=== PATIENT | male | born 1945 | race Caucasian/White ===

== ENCOUNTER 2016-06-03 17:22 | Emergency (ER) | payer OTHER, MEDICARE ==
[~2016-06-03] VITALS: Ht 177.8 cm; Wt 99.0 kg
[~2016-06-03 17:22] MED LIST: ACET-749 PO; BLOOD PRESSURE MEDS; CEPH500C PO; MULT-513 PO; VITAMINS
[2016-06-03 17:35] VITALS: TEMP 36.4; Ht 177.8 cm; Wt 99.0 kg
[2016-06-03] MEDS ORDERED: TRAM-10 PO (17:39)
[2016-06-03] MEDS ORDERED: [UNRECOGNIZED DRUG - OTHER] PO (17:39)
[2016-06-03] MEDS ORDERED: MoRPHine SULFATE 10 MG/ML CARP/VIAL IV STA (17:41)
[2016-06-03] MEDS ORDERED: SODIUM CHLORIDE 0.9% 1000ML 1,000 ML IV STA (17:41)
[2016-06-03 17:57] LABS: BASO % 0.2 %; BASO ABS # 0.02 K/uL (0-0.2); COMPLETE YES; EOS % 0.2 %; HEMATOCRIT 38.1 % (42-52); IG% 0.1 %; LYMPH % 18.9 %; LYMPH ABS # 1.62 K/uL (1.2-3.4); MEAN CELL VOLUME 81.8 fL (80-100); MEAN CORPUSCULAR HEMOGLOBIN 27.9 pg (25-34); MEAN CORPUSCULAR HGB CONC 34.1 g/dl (32-36); MEAN PLATELET VOLUME 9.7 fL (7.4-10.4); MONO % 6.6 %; PLATELET COUNT 274 K/uL (130-400); RED BLOOD COUNT 4.66 M/uL (4.7-6.1); WHITE BLOOD COUNT 8.58 K/uL (4.8-10.8)
[2016-06-03 18:01] LABS: BUN/CREATININE RATIO 20.7 (10-20); CREATININE 0.97 mg/dl (0.60-1.40); POTASSIUM 3.8 mmol/L (3.5-5.1)
[2016-06-03 18:04] LABS: ALB/GLOB RATIO 1.2 (0.9-2)
[2016-06-03 18:18] VITALS: BP 162/101
--- NOTE | 2016-06-03 18:24 | DIAGNOSTIC IMAGING REPORT ---
ABDOMEN AND PELVIS CT WITHOUT CONTRAST CT DOSE: 1455.77 mGy.cm HISTORY: right flank pain into groin, nausea TECHNIQUE: Multiaxial CT images of the abdomen and pelvis were performed without the use of intravenous and oral contrast according to the standard department stone protocol. COMPARISON STUDY: None. FINDINGS: There are no renal stones. Mild right perinephric and periureteral fat stranding/edema. There is a 2 mm stone at the right ureterovesical junction. This results in mild right hydroureteronephrosis. This is best seen on image 139. The bladder is unremarkable. The lung bases are essentially clear. Small hiatus hernia. Colonic diverticulosis. Suboptimal evaluation for bowel pathology due to the lack of intravenous and oral contrast. However, there is no definite bowel wall thickening or obstruction. Normal appendix. No retroperitoneal lymphadenopathy. The unenhanced liver, spleen, GI glands, pancreas, and gallbladder are unremarkable. There is a 5 mm exophytic hyperdense lesion within the left kidney. This is too small to characterize but may represent a hyperdense cyst. IMPRESSION: 1. A 2 mm obstructing stone within the right ureterovesical junction resulting in mild right hydronephrosis. 2. No definite bowel wall thickening or obstruction. 3. Colonic diverticulosis. 4. Small hiatus hernia. Electronically signed by: Arvin Mccabe M.D. 06/03/2016 6:22 PM Dictated Date/Time: 06/03/2016 6:16 PM
[2016-06-03] MEDS ORDERED: TAMSULOSIN HCL 0.4 MG CAP PO ONE (18:45)
[2016-06-03] MEDS ORDERED: MoRPHine SULFATE 4 MG/ML 1 ML CARP\\VIAL IV STA (18:45)
[2016-06-03] MEDS ORDERED: OXYCODONE IR HOME PACK PO ONE (19:00)
[2016-06-03] MEDS ORDERED: ONDANSETRON HOME PACK 4MG OD TAB PO ONE (19:00)
[2016-06-03 19:05] LABS: URINE APPEARANCE CLEAR (CLEAR); URINE BILIRUBIN NEG (NEG); URINE COLOR DK YELLOW; URINE NITRITE NEG (NEG); URINE SPECIFIC GRAVITY 1.021 (1.000-1.030); UROBILINOGEN NEG (NEG); ZZUR CULT IF INDIC CLEAN CATCH NO
[2016-06-03 19:07] LABS: MANUAL MICROSCOPIC REQUIRED? NO; REVIEW REQ? NO
[2016-06-03] MEDS ORDERED: OXYC1TAB3 PO (19:16)
[2016-06-03] MEDS ORDERED: TAMS0.4C38 PO (19:16)
[2016-06-03] MEDS ORDERED: ONDA4TAB10 SL (19:16)
--- NOTE | 2016-06-03 19:19 | EMERGENCY ROOM VISIT NOTE ---
History First contact with patient: 17:33 Chief Complaint: FLANK PAIN Stated Complaint: FLANK PAIN History of Present Illness The patient is a 70 year old male who presents to the Emergency Room via ALS with complaints of right flank pain with radiation into the groin that began 2 hours prior to arrival. The patient reports that he had a sudden onset of pain in the right back with radiation into the abdomen and groin. He reports he is having difficulty urinating and nausea associated with these symptoms. He denies any vomiting. He rates his pain a 12/10. He states that he cannot find a comfortable position. The patient does not have a history of kidney stones. He denies any history of abdominal surgeries. He does not take any medications daily and did not take any medications for today's symptoms. He denies any fevers/chills, chest pain, shortness of breath or recent illnesses. Review of Systems A complete 10-point Review of Systems was discussed with the patient, with pertinent positives and negatives listed in the History of Present Illness. All remaining Review of Systems questions can be considered negative unless otherwise specified. Social History Smoking Status: Never Smoker Current/Historical Medications Scheduled Multiple Vitamins W/ Minerals (Multivitamin), 1 OZ PO DAILY Ondasetron Odt (Zofran Odt), 4 MG SL Q6H Tamsulosin Hcl (Flomax), 0.4 MG PO DAILY Scheduled PRN Oxycodone Ir (Roxicodone Ir), 1-2 TAB PO Q4H PRN for Pain Tramadol (Ultram), 50 MG PO Q8H PRN for Pain Allergies Coded Allergies: Aspirin (Unverified Allergy, Unknown, UNSURE, 06/03/16) Citric Acid (Unverified Allergy, Unknown, UNKNOWN, 06/03/16) Ibuprofen (Unverified Allergy, Unknown, UNSURE, 06/03/16) Physical Exam Vital Signs Date Time Temp Pulse Resp B/P Pulse Ox O2 Delivery O2 Flow Rate FiO2 06/03/16 19:37 87 20 99 06/03/16 18:18 91 18 162/101 99 Room Air 06/03/16 17:35 36.4 86 21 176/104 98 Room Air Pain Rating (0-10): 5.0 Physical Exam VITALS: Vitals are noted on the nurse's note and reviewed by myself. Vital signs stable. GENERAL: This is a 70-year-old male, in no acute distress, nondiaphoretic, well- developed well-nourished. SKIN: Capillary reflex less than 2 seconds. HEENT: Normocephalic. PERRLA. EOMI. Nares patent. Mucous membranes moist. Neck is supple without nuchal rigidity. HEART: Regular rate and rhythm without murmurs gallops or rubs. LUNGS: Clear to auscultation bilaterally without wheezes, rales or rhonchi. No retractions or accessory muscle use. ABDOMEN: Positive bowel sounds x 4. Abdomen is soft with moderate tenderness over the right lower quadrant. Moderate right CVA tenderness. NEURO: Patient was alert and oriented to person place and time. Medical Decision & Procedures ER Provider Diagnostic Interpretation: ABDOMEN AND PELVIS CT WITHOUT CONTRAST CT DOSE: 1455.77 mGy.cm HISTORY: right flank pain into groin, nausea TECHNIQUE: Multiaxial CT images of the abdomen and pelvis were performed without the use of intravenous and oral contrast according to the standard department stone protocol. COMPARISON STUDY: None. FINDINGS: There are no renal stones. Mild right perinephric and periureteral fat stranding/edema. There is a 2 mm stone at the right ureterovesical junction. This results in mild right hydroureteronephrosis. This is best seen on image 139. The bladder is unremarkable. The lung bases are essentially clear. Small hiatus hernia. Colonic diverticulosis. Suboptimal evaluation for bowel pathology due to the lack of intravenous and oral contrast. However, there is no definite bowel wall thickening or obstruction. Normal appendix. No retroperitoneal lymphadenopathy. The unenhanced liver, spleen, GI glands, pancreas, and gallbladder are unremarkable. There is a 5 mm exophytic hyperdense lesion within the left kidney. This is too small to characterize but may represent a hyperdense cyst. IMPRESSION: 1. A 2 mm obstructing stone within the right ureterovesical junction resulting in mild right hydronephrosis. 2. No definite bowel wall thickening or obstruction. 3. Colonic diverticulosis. 4. Small hiatus hernia. Laboratory Results 06/03/16 17:30 Red Blood Count 4.66, Mean Corpuscular Volume 81.8, Mean Corpuscular Hemoglobin 27.9, Mean Corpuscular Hemoglobin Concent 34.1, Mean Platelet Volume 9.7, Neutrophils (%) (Auto) 74.0, Lymphocytes (%) (Auto) 18.9, Monocytes (%) (Auto) 6.6, Eosinophils (%) (Auto) 0.2, Basophils (%) (Auto) 0.2, Neutrophils # (Auto) 6.34, Lymphocytes # (Auto) 1.62, Monocytes # (Auto) 0.57, Eosinophils # (Auto) 0.02, Basophils # (Auto) 0.02 06/03/16 17:30 Test 06/03/16 17:30 06/03/16 18:52 White Blood Count 8.58 K/uL (4.8-10.8) Red Blood Count 4.66 M/uL (4.7-6.1) Hemoglobin 13.0 g/dL (14.0-18.0) Hematocrit 38.1 % (42-52) Mean Corpuscular Volume 81.8 fL (80-100) Mean Corpuscular Hemoglobin 27.9 pg (25-34) Mean Corpuscular Hemoglobin Concent 34.1 g/dl (32-36) Platelet Count 274 K/uL (130-400) Mean Platelet Volume 9.7 fL (7.4-10.4) Neutrophils (%) (Auto) 74.0 % Lymphocytes (%) (Auto) 18.9 % Monocytes (%) (Auto) 6.6 % Eosinophils (%) (Auto) 0.2 % Basophils (%) (Auto) 0.2 % Neutrophils # (Auto) 6.34 K/uL (1.4-6.5) Lymphocytes # (Auto) 1.62 K/uL (1.2-3.4) Monocytes # (Auto) 0.57 K/uL (0.11-0.59) Eosinophils # (Auto) 0.02 K/uL (0-0.5) Basophils # (Auto) 0.02 K/uL (0-0.2) RDW Standard Deviation 42.6 fL (36.4-46.3) RDW Coefficient of Variation 14.3 % (11.5-14.5) Immature Granulocyte % (Auto) 0.1 % Immature Granulocyte # (Auto) 0.01 K/uL (0.00-0.02) Anion Gap 11.0 mmol/L (3-11) Est Creatinine Clear Calc Drug Dose 84.8 ml/min Estimated GFR () 91.9 Estimated GFR (Non- 79.3 BUN/Creatinine Ratio 20.7 (10-20) Calcium Level 9.0 mg/dl (8.5-10.1) Total Bilirubin 0.4 mg/dl (0.2-1) Aspartate Amino Transf (AST/SGOT) 26 U/L (15-37) Alanine Aminotransferase (ALT/SGPT) 33 U/L (12-78) Alkaline Phosphatase 94 U/L (45-117) Total Protein 7.5 gm/dl (6.4-8.2) Albumin 4.1 gm/dl (3.4-5.0) Globulin 3.4 gm/dl (2.5-4.0) Albumin/Globulin Ratio 1.2 (0.9-2) Lipase 97 U/L (73-393) Urine Color DK YELLOW Urine Appearance CLEAR (CLEAR) Urine pH 5.0 (4.5-7.5) Urine Specific Hurricane 1.021 (1.000-1.030) Urine Protein NEG (NEG) Urine Glucose (UA) NEG (NEG) Urine Ketones 2+ (NEG) Urine Occult Blood NEG (NEG) Urine Nitrite NEG (NEG) Urine Bilirubin NEG (NEG) Urine Urobilinogen NEG (NEG) Urine Leukocyte Esterase NEG (NEG) Medications Administered Medications (Trade) Dose Ordered Sig/Yenifer Route Start Time Stop Time Status Last Admin Dose Admin Sodium Chloride (Nss 1000ml) 1,000 ml @ 999 mls/hr Q1H1M STAT IV 06/03/16 17:41 06/03/16 18:41 DC 06/03/16 17:49 999 MLS/HR Morphine Sulfate (MoRPHine SULFATE INJ) 6 mg NOW STAT IV 06/03/16 17:41 06/03/16 17:43 DC 06/03/16 17:49 6 MG Morphine Sulfate (MoRPHine SULFATE INJ) 4 mg NOW STAT IV 06/03/16 18:45 06/03/16 18:46 DC 06/03/16 18:58 4 MG Tamsulosin HCl (Flomax Cap) 0.4 mg NOW ONCE PO 06/03/16 18:45 06/03/16 18:46 DC 06/03/16 18:58 0.4 MG Oxycodone HCl (Roxicodone Immediate Rel 5MG Home Pack) 1 homepack UD ONCE PO 06/03/16 19:00 06/03/16 19:01 DC 06/03/16 18:59 1 HOMEPACK Ondansetron HCl (ZOFRAN ODT 4MG Home Pack) 1 homepack UD ONCE PO 06/03/16 19:00 06/03/16 19:01 DC 06/03/16 18:59 1 HOMEPACK Medical Decision Differential diagnosis includes renal calculus, pyelonephritis, musculoskeletal pain, abdominal aortic aneurysm, bowel obstruction, colitis, among others. The patient was evaluated as above. Labs were drawn and IV access was obtained. Imaging studies were performed and read by radiology as above. The patient had received 4 mg Zofran IV en route. The patient was initially medicated with 6 mg morphine IV and 1 L normal saline bolus. He did require an additional 4 mg morphine. He was given a dose of Flomax. He was given home packs for OxyIR and Zofran. The patient was reassessed multiple times during their stay in the emergency department and remained in stable condition. The patient is a 70-year-old male who presents today complaining of right flank pain. Labs revealed no leukocytosis, anemia or concerning electrolyte abnormality. Urinalysis was not suggestive of infection. CT of the abdomen and pelvis did show a right ureteral stone at the UVJ. The stone is 2 mm and I do feel it will pass without intervention. Findings were discussed with the patient and options of care were discussed including admission for pain control versus discharge home. The patient prefers to be discharged home. He will be given prescriptions for Flomax, OxyIR and Zofran. He will follow-up with his primary care provider or urology as needed. He was given a urine strainer. He had significant relief of his pain with IV morphine and Zofran. Based on the patient's presentation, lab results, and imaging studies, I feel the patient is stable for outpatient treatment. The patient was independently evaluated by Dr. Gonzalez, ED attending physician, who agreed with my assessment and treatment plan. Discharge instructions were reviewed with the patient. The patient verbalized understanding of my assessment and treatment plan and was discharged home in good condition. Impression Primary Impression: Ureteral calculus Departure Information Dispostion Home / Self-Care Condition GOOD Prescriptions Tamsulosin Hcl (FLOMAX) 0.4 Mg Cap 0.4 MG PO DAILY for 10 Days, #10 CAP Prov: Chaya Mcguire ., CLAUDE 06/03/16 Ondasetron Odt (ZOFRAN ODT) 4 Mg Tab 4 MG SL Q6H for Nausea, #15 TAB Prov: Chaya Mcguire PA-C 06/03/16 Oxycodone Ir (Roxicodone Ir) 5 Mg Tab 1-2 TAB PO Q4H Y for Pain, #24 TAB For Initial Treatment Prov: Chaya Mcguire PA-C 06/03/16 Referrals William Abreu M.D. (PCP) Km Bee M.D. Patient Instructions A Signature Page, My [facility] Additional Instructions You have been treated in the Emergency Department today for a Kidney Stone ( Nephrolithiasis). You have received pain medicine in the emergency department which impairs your ability to operate a vehicle. It is illegal for you to drive after receiving these medicines. You have been prescribed Oxy IR to be used for pain control. This is a narcotic medication. You cannot drive or consume alcohol while on this medicine. This medicine should only be used for pain that cannot be controlled with over-the- counter pain medicines. You have been prescribed Zofran to be used for any nausea or vomiting. Take as prescribed. You have been prescribed Flomax 0.4 mg to be taken ONCE daily. This medicine has been prescribed as it can help relax the smooth muscles of the urinary tract increasing transit time of the kidney stone. For pain control, you can use the following apig-yeg-spnjjwj medicines (if >12 yo): - Regular strength (325mg/tab) Tylenol (acetaminophen) 2 tabs every 4-6 hours as needed. Do not exceed 12 tablets in a 24 hour period. Avoid taking more than 4 grams (4000 mg) of Tylenol per day. This includes any other sources of acetaminophen you may take on a regular basis. - Regular strength (200 mg/tab) Advil (ibuprofen) 1-2 tabs every 4-6 hours as needed. Do not exceed a dose of 3200 mg per day. You have been provided a strainer and specimen collection cup. You should strain your urine to collect any passed stones. Your stones can be placed into the specimen cup and taken to your Urologist for further evaluation. Follow-up with a urologist if you have not passed the stone in 2-3 days. Return to the Emergency Department if your symptoms persist despite the treatment plan outlined above or if you develop the following symptoms: intractable pain, fever, chills, or large amounts of blood in your urine.
[2016-06-03 19:37] VITALS: PULSE 87; O2SAT 99
--- NOTE | 2016-06-03 22:34 | EMERGENCY ROOM VISIT NOTE ---
ED Visit Note First contact with patient: 17:33 I have personally seen and evaluated the patient with the PA. I agree with the diagnosis and management decisions and have been personally involved in the case. Patient was feeling improved on my evaluation. He seems comfortable with the plan for discharge. His CT scan results were reviewed as well as the plan for conservative management of the 2 mm calculus. Please see Chaya Mcguire PA-C's notes for further details of the history, physical and visit.
== END 2016-06-03 19:47 | disposition home or self-care (01) ==
LOC: EDSEX 17:22 → EDBD 17:22 → C.EDB 17:24
DX: N20.1 Calculus of ureter (principal); Z88.6 Allergy status to analgesic agent; Z91.018 Allergy to other foods

== ENCOUNTER 2020-04-06 12:36 | Inpatient (IN) ==
--- OUTSIDE RECORDS SUMMARY | 2020-04-06 12:39 | External Medical Summary | Continuity of Care Document ---
:1945 Author Name Shruthi Menjivar Address Unavailable Unavailable , Care Team Providers Name Role Phone Unavailable Unavailable Unavailable Problems Active medical history not documented Allergies and Adverse Reactions Allergy history not documented Medications Medications not documented Procedures Procedures not documented Immunizations Immunizations not documented Plan of Treatment Planned Observations Planned Goals not documented Results No Known Results Results not documented
[2020-04-06] MEDS ORDERED: cefTRIAXone SODIUM 2,000 MG/70 ML BAG IV STA (12:57)
[2020-04-06] MEDS ORDERED: ACETAMINOPHEN 1,000 MG/100 ML VIAL IV STA (12:57)
[2020-04-06] MEDS ORDERED: DOXYCYCLINE HYCLATE 100 MG CAP PO STA (12:57)
[2020-04-06 12:59] LABS: Basophils # (auto) 0.01 K/uL (0-0.2); Basophils % (auto) 0.1 %; Hematocrit (blood only) 43.3 % (42-52); Hemoglobin 14.9 g/dL (14.0-18.0); Immature Granulocytes # (auto) 0.03 K/uL (0.00-0.02); Immature Granulocytes % (auto) 0.3 %; Lymphocytes # (auto) 0.45 K/uL (1.2-3.4); Lymphocytes % (auto) 4.5 %; Mean Corpuscular Hemoglobin 31.1 pg (25-34); Mean Corpuscular Hgb Conc 34.4 g/dL (32-36); Mean Corpuscular Volume 90.4 fL (80-100); Monocytes # (auto) 0.76 K/uL (0.11-0.59); Monocytes % (auto) 7.5 %; Neutrophils # (auto) 8.83 K/uL (1.4-6.5); Neutrophils % (auto) 87.6 %; Platelet Count 171 K/uL (130-400); RDW Coefficient of Variation 13.3 % (11.5-14.5); RDW Standard Deviation 43.6 fL (36.4-46.3); Red Blood Count 4.79 M/uL (4.7-6.1); White Blood Count 10.08 K/uL (4.8-10.8)
[2020-04-06 13:09] LABS: Alanine Aminotransferase 34 U/L (12-78); Aspartate Aminotransferase 33 U/L (15-37); BUN Creatinine Ratio 34.3 (10-20); Blood Urea Nitrogen 28 mg/dl (7-18); Calcium 9.6 mg/dl (8.5-10.1); Carbon Dioxide 24 mmol/L (21-32); Chloride 100 mmol/L (98-107); Creatinine Clr Calc Pharmacy 92.7 ml/min; Est GFR (African American) 101.7; Est GFR (Non-African American) 87.7; Glucose 137 mg/dl (70-99); Lipase 202 U/L (73-393); Potassium 3.4 mmol/L (3.5-5.1); Sodium 133 mmol/L (136-145)
[2020-04-06 13:11] LABS: Partial Thromboplastin Time 29.1 Seconds (21.0-31.0)
[2020-04-06 13:16] LABS: Albumin Globulin Ratio 0.6 (0.9-2); Alkaline Phosphatase 114 U/L (45-117); Bilirubin,Total 0.7 mg/dl (0.2-1); Creatine Kinase 122 U/L (39-308); Creatine Kinase MB < 1.0 ng/ml (0.5-3.6); Globulin 4.9 gm/dl (2.5-4.0); Total Protein 7.9 gm/dl (6.4-8.2); Troponin I < 0.015 ng/ml (0-0.045)
[2020-04-06] MEDS ORDERED: POTASSIUM CHLORIDE CRTAB 20 MEQ TABCR PO STA (13:30)
--- NOTE | 2020-04-06 13:49 | XRay Report ---
XR chest 1V portable CLINICAL HISTORY: Atypical chest pain COMPARISON STUDY: No previous studies for comparison. FINDINGS: The heart is the upper limits of normal in size. There is mild central vascular prominence without evidence of overt failure. There is no lobar consolidation. There are no pleural effusions. T here is mild basilar atelectasis.[ IMPRESSION: 1. AP portable study 2. No evidence of focal pulmonary consolidation 3. Mild basilar atelectasis ACT 112: Negative or not required by law. Electronically signed by: Atif Francis M.D. 04/06/2020 1:47 PM
[2020-04-06 13:55] LABS: D Dimer 5960 ug/L FEU (0-500)
[2020-04-06 14:11] LABS: Lyme Ab IgG w/WB Rflx Negative (Negative); Lyme Ab IgM w/WB Rflx Negative (Negative)
[2020-04-06] MEDS: MAGNESIUM SULFATE / D5W 1 GM/100 ML BAG IV SCH ×4 (14:16→17:23)
--- NOTE | 2020-04-06 15:24 | Ultrasound Report ---
US abdomen limited HISTORY: 74 years-old Male Pt c/o RUQ abd pain . Right upper quadrant abdominal pain COMPARISON: CT abdomen and pelvis 06/03/2016 TECHNIQUE: Multiple real-time sonographic images of the abdominal right upper quadrant were obtained assessing grayscale appearance and color flow FINDINGS: The pancreas is mostly obscured by bowel gas. Increased echogenicity of the liver suggests probable h epatic steatosis. Ill-defined area decreased echogenicity of the liver noted adjacent to the loida he patis measuring 2.0 cm suggests fatty sparing. No intrahepatic biliary ductal dilation. The gallbladd er is moderately distended and demonstrates edematous wall thickening measuring up to 6 mm. Trace per icholecystic fluid. Cholelithiasis with layering gallbladder sludge. Sonographic Browne sign was unab le to be assessed secondary to patient recently receiving pain medication. The dry plasterer does repor t that the patient experienced subjective right upper quadrant tenderness. Common bile duct is mildly dilated measuring 1.1 cm. Unremarkable right kidney without hydronephrosis. IMPRESSION: 1. Cholelithiasis with edematous wall thickening and pericholecystic fluid is suspicious for acute ch olecystitis. 2. Mild dilation of the common bile duct without obstructing biliary stone or lesion identified. 3. Increased echogenicity of the liver suggests hepatic steatosis. ACT 112: Negative or not required by law. The above report was generated using voice recognition software. It may contain grammatical, syntax o r spelling errors. Electronically signed by: Frank Palacios M.D. 04/06/2020 3:22 PM
[2020-04-06] MEDS ORDERED: OPTIRAY 320 125ml IV ONE (15:41)
--- NOTE | 2020-04-06 15:57 | CT Scan Report ---
CT SCAN OF THE ABDOMEN AND PELVIS WITH IV CONTRAST CLINICAL HISTORY: Right upper quadrant abdominal pain. COMPARISON STUDY: Abdominal CT dated 06/03/2016. TECHNIQUE: Following the IV administration of 120 cc of Optiray 320, CT scan of the abdomen and pelv is is performed from the lung bases to the proximal femora. Images are reviewed in the axial, sagitta l, and coronal planes. IV contrast was administered without complication. A dose lowering technique w as utilized adhering to the principles of ALARA. CT DOSE: 1536.20 mGy.cm FINDINGS: Lung bases: The heart is normal in size and without pericardial effusion. The coronary arteries are d ensely calcified. There is a trace right pleural effusion and bibasilar atelectasis. No airspace cons olidation is seen typical for pneumonia. There is a small hiatal hernia. Circumferential wall thicken ing is noted in the distal esophagus. Liver: The contrast-enhanced liver is normal in size, contour, and attenuation. There is no intrahepa tic biliary ductal dilatation. The hepatic veins and portal veins are patent. Gallbladder: The gallbladder is distended. The gallbladder wall is edematous and hyperemic, and no si gnificant pericholecystic stranding and fluid. Findings are consistent with acute cholecystitis. Ther e is a mucosal defect along the posterior wall of the gallbladder suggesting gangrenous change/perfor ation. Inflammatory change and fluid tracking inferiorly along the right paracolic gutter. Spleen: Normal in size and attenuation. Pancreas: Moderately atrophic and grossly unremarkable. Adrenal glands: Unremarkable. Kidneys: The contrast enhanced kidneys demonstrate cortical atrophy and are without hydronephrosis. 1 .4 cm cyst is noted in the interpolar left kidney. Additional subcentimeter cortical hypodensities al so likely represent cysts but are too small for definitive characterization. Cortical scarring is see n in the left kidney. The kidneys enhance symmetrically. Abdominal vasculature: The abdominal aorta is normal in course and caliber noting mild atheroscleroti c calcification. Bowel: There is mild colonic diverticulosis without CT evidence of acute diverticulitis. No bowel obs truction is seen. The appendix is well-visualized and normal. Peritoneum: There is no intraperitoneal free air or abdominal ascites. Lymphadenopathy: None. Pelvic viscera: The bladder, prostate, and seminal vesicles are normal as visualized. Skeletal structures: The skeletal structures are osteopenic. Moderate lumbosacral spondylosis is obse rved. No lytic or blastic lesions are seen. IMPRESSION: 1. Findings are consistent with acute cholecystitis, likely with gangrenous change/perforation. 2. Trace right pleural effusion. 3. Advanced coronary artery calcification. 4. Additional findings as above. ACT 112: Negative or not required by law. Electronically signed by: Rogelio Oliveros M.D. 04/06/2020 3:55 PM
--- NOTE | 2020-04-06 15:58 | CT Scan Report ---
CT angio chest PE protocol HISTORY: 74 years-old Male with PE. Acute shortness of breath with right upper quadrant abdominal p ain TECHNIQUE: Multiple CTA images of the chest were obtained after the intravenous administration of 120 ml Optiray 320. Coronal and sagittal MIPS were obtained from the axial data set and were submitted for review. All measurements were obtained according to NASCET criteria. A dose lowering technique w as utilized adhering to the principles of ALARA. COMPARISON: CT abdomen and pelvis and abdominal ultrasound of same day FINDINGS: CTA: Moderate cardiomegaly. Moderate to extensive coronary artery calcifications. Fusiform dilation of the ascending thoracic aorta which is not well opacified and measures 4.2 x 4.2 cm. Descending thoracic tortuosity. Areas of decreased attenuation within the lobar, segmental and subsegmental branches of t he right lower lobe suggests mixing artifact. No definite evidence of thromboembolic disease. CT CHEST: Unremarkable thyroid. No adenopathy. Trace left and small right pleural effusions. Dependent subsegme ntal bibasilar opacities suggest atelectasis. There is mild bilateral bronchial wall thickening sugge stive of bronchitis or reactive airway disease. No overt pulmonary edema, suspicious pulmonary nodule or mass. Central airways are patent. There is moderate mid and distal esophageal wall thickening. Mild periesophageal stranding. Edematous gallbladder wall thickening with pericholecystic edema is partially imaged. Gynecomastia. Degenerati ve changes of the spine and shoulders. There is no acute fracture or suspicious bone lesion. IMPRESSION: 1. Cardiomegaly without evidence of pulmonary thromboembolic disease. 2. Fusiform dilation of the ascending thoracic aorta, 4.2 x 4.2 cm 3. Trace left and small right pleural effusions with dependent bibasilar opacities suggestive of atel ectasis. 4. Partially imaged edematous gallbladder wall thickening with pericholecystic fluid suggestive of ac yoselin cholecystitis. Please refer to CT abdomen and pelvis study of same day for additional findings. 5. Moderate wall thickening of the mid and distal esophagus with mild periesophageal stranding, possi adelina reflective of esophagitis. ACT 112: Negative or not required by law. The above report was generated using voice recognition software. It may contain grammatical, syntax o r spelling errors. Electronically signed by: Frank Palacios M.D. 04/06/2020 3:57 PM
[2020-04-06] MEDS ORDERED: PIPERACILLIN/TAZOBACTAM 4.5 GM/120 ML BAG IV ONE (16:18)
[2020-04-06] MEDS ORDERED: PIPERACILL/TAZOBAC CONSULT ACTIVE PRN (16:18)
--- NOTE | 2020-04-06 16:18 | History & Physical Report ---
Date of Service April 06, 2020 Assessment & Plan (1) Acute cholecystitis: Switch antibiotics to IV Zosyn Consult surgery - discussed with Dr Chandra. Given urgent need for cholecystectomy and concern for perforation - benefits of surgery outweigh any further cardiac workup for his atrial fibrillation at this time. Unlikely atrial fibrillation is ischemic given recent excellent exercise tolerance, troponin negative on admission and no chest pain or shortness of breath. He has no signs or symptoms he is in heart failure as a result of the a. fib. Acetaminophen +/- Dilaudid for pain relief, ondansetron for nausea LR @ 125 ml/hr Revised cardiac risk index 0; 3.9% 30-day risk of , RI, or cardiac arrest. (2) Atrial fibrillation with RVR: Unclear how long he has been in this rhythm but is new onset. admit to telemetry for monitoring heart rate. Rate likely appropriate given gangrenous gall bladder. No need for rate control at this stage. No acute need for anticoagulation - urgent need for cholecystectomy outweighs any anticoagulation benefit risk although this should be started non-urgently post operatively. TSH 1.13 TTE - pending (this does not need to be performed pre-operatively if urgent cholecystectomy required for reasons listed above). Consult cardiology. (3) Glaucoma: Continue his usual latanoprost and timolol (4) DVT prophylaxis: Chemical prophylaxis post-operatively; timing per surgery recommendations History of Present Illness Chief Complaint: RUQ abdominal pain Primary Care Provider: Carlee Stafford Josh Martin is a generally healthy 74 year old male who presents to the ER with 4 days of abdominal pain. Never had any gall bladder issues in the past. Abdominal pain in right upper quadrant, worse after eating (started after eating sweet and sour chicken. No change with exertion or position. Very tender to touch. Current severity 6/10 but on palpation 10/10. He reports having a fever of 100.1 degrees Fahrenheit at home. Associated reduced appetite and nausea. No vomiting, diarrhea, constipation, melena. He does report having a tick bite which he is attached when he was hunting on Sunday. However the tick was found on Sunday (2 days previously) and was removed but not engorged at this time. Tick bite found on right posterior thigh. He denies any rashes. Prior to this the patient is physically fit. Hunts regularly without any chest pain or shortness of breath. No prior history of cardiovascular disease. Able to walk a mile without any issues. No prior diagnosis of atrial fibrillation. In the ER due to the history of tick bite he received IV doxycycline and serology testing sent for anaplasmosis and ehrlichiosis. I am unclear on the reasons for ceftriaxone however 2 g IV was also prescribed. Potassium chloride 40 M EQ p.o. given for hypokalemia. Subsequent imaging concerning for gangrenous acute cholecystitis with possible perforation. He was noted to be in new onset atrial fibrillation on telemetry and EKG. Surgery has already been consulted regarding acute cholecystitis. He was referred to medicine for admission. Allergies Allergy/AdvReac Type Severity Reaction Status Date / Time aspirin Allergy Unknown UNSURE Verified 04/07/20 09:45 Beef Containing Products Allergy Unknown Unknown Verified 04/07/20 10:00 citric acid Allergy Unknown UNKNOWN Verified 04/07/20 10:05 ibuprofen Allergy Unknown UNSURE Unverified 04/06/20 14:23 lemon Allergy Unknown Unknown Verified 04/07/20 10:00 Home Medications Home Medications Medication Instructions Recorded Confirmed Type baclofen 10 mg PO BID PRN 04/06/20 04/06/20 History latanoprost [Xalatan] 1 drp OPB HS 04/06/20 04/06/20 History multivitamin 1 tab PO QAM 04/06/20 04/06/20 History timolol maleate 1 drp OPB BID 04/06/20 04/06/20 History tramadol 100 mg PO BID 04/06/20 04/06/20 History Past Med/Surg History Medical History Glaucoma Surgical History History of surgery on upper extremity 1970s - trauma surgery to left upper extremity Social History Smoking Status: Former smoker Years Smoked: 3; Smoking End Date: ; Second Hand Exposure: No; Tobacco Cessation Education Requested by Patient: No Hx Alcohol Use: No Hx Substance Use: No Preferred Language: Romanian Communication Ability: Effective Floor Tech Required: No Beliefs That Will Affect Care: None Current Living Situation: Spouse 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, 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 Other Information That Helps Us Care for You: No Feels Safe at Home: Yes Safety Concerns: Feels Safe At This Time Assistive Devices: Denture - Upper and Glasses Review of Systems Review of Systems: All systems reviewed & are unremarkable except as noted in HPI & below Physical Exam Constitutional: well developed and well nourished; no acute distress Eyes: + anicteric sclerae; normal pupil size ENMT: Ears: no external ear abnormality Nose: no external nose abnormality Mouth: + dry oral mucous membranes Neck: trachea midline, no thyromegaly Respiratory: normal respiratory effort, lungs clear to auscultation Cardiovascular: Rate/Rhythm: + tachycardic and + irregularly irregular Heart Sounds: no murmur Vessels: no JVD Extremities: normal capillary refill; no calf tenderness and no pedal edema Gastrointestinal (Abdomen): Inspection/Auscultation: + hypoactive bowel sounds; abdomen not distended Percussion/Palpation: + abdomen tender (RUQ, mild rebound tenderness elsewhere), + guarding and abdomen soft; abdomen not rigid Musculoskeletal: no cyanosis or clubbing, extremities motor strength 5/5 Skin: no rashes, warm and dry Neurologic: moves all extremities and awake; no focal motor deficits and not confused Psychiatric: A+Ox3, euthymic affect Results & Data Results & Data ([facility]) Vital Signs (Past 12 Hours) Vital Signs Temp Pulse Resp BP Pulse Ox 04/06/20 15:45 93 H 18 142/90 H 91 04/06/20 15:20 36.9 C 04/06/20 15:13 95 H 24 147/100 H 92 04/06/20 12:57 92 04/06/20 12:49 38.2 C H 117 H 20 127/99 92 Diagnostic Findings XR chest 1V portable IMPRESSION: 1. AP portable study 2. No evidence of focal pulmonary consolidation 3. Mild basilar atelectasis US abdomen limited IMPRESSION: 1. Cholelithiasis with edematous wall thickening and pericholecystic fluid is suspicious for acute cholecystitis. 2. Mild dilation of the common bile duct without obstructing biliary stone or lesion identified. 3. Increased echogenicity of the liver suggests hepatic steatosis. CT angio chest PE protocol IMPRESSION: 1. Cardiomegaly without evidence of pulmonary thromboembolic disease. 2. Fusiform dilation of the ascending thoracic aorta, 4.2 x 4.2 cm 3. Trace left and small right pleural effusions with dependent bibasilar opacities suggestive of atelectasis. 4. Partially imaged edematous gallbladder wall thickening with pericholecystic fluid suggestive of acute cholecystitis. Please refer to CT abdomen and pelvis study of same day for additional findings. 5. Moderate wall thickening of the mid and distal esophagus with mild periesophageal stranding, possibly reflective of esophagitis. Code Status & VTE Plan Code Status Full VTE Prophylaxis Plan VTE Prophylaxis will be ordered: Yes PG Care Time/CCT Total # of Minutes Spent Total Time Spent with Patient: Total time spent is greater than 50% in coordination of care (as documented) at patient's floor/unit and/or counseling patient: Coding Level of Care Code 63059 Initial Inpt Care Lvl 3 Diagnoses Acute cholecystitis K81.0 Atrial fibrillation with RVR I48.91 Glaucoma H40.9 DVT prophylaxis Z29.9
[2020-04-06] MEDS ORDERED: FAMOTIDINE 20MG/5ML IV PUSH IV STA (16:26)
--- NOTE | 2020-04-06 16:34 | Surgery Consultation ---
Date of Consultation April 06, 2020 Assessment & Plan (1) Atrial fibrillation with RVR: Acute cholecystitis, dilated CBD but normal LFTs. Being admitted by hospitalist for further cardiac eval, if not felt to be surgical candidate in next 24-48 hours may need percutaneous cholecystostomy. Dr. Chandra will be following. Supervising Physician Co-Signing Physician Notes As per Yony bustillos the patient who is a hunting regularly and had denied any chest pain after eating sweet and sour chicken developed abdominal pain was approximately Sunday progressively getting worse and not eating anything since then except to bites last evening was diagnosed acute cholecystitis possible perforation Patient also had new onset of atrial fib The patient other than that was relatively healthy years ago he had complete cardiac evaluation at the [facility] was about 10 years ago for what he felt some syncopal attacks The patient is resting comfortably although complaining some abdominal pain on exam the patient exquisitely tender and rebound right upper quadrant CT scan and other lab was noted at bedside I recommend the patient proceed with laparoscopic cholecystectomy intraoperative cholangiogram possible open The new onset of atrial fib most likely is related to the acute episode of his gallbladder The case was discussed with the internal medicine and they agreed to proceed with surgery As stated above risk and palpation were explained to the patient Permit was signed surgery was called at approximately 7:05 PM History of Present Illness History of Present Illness 74 y/o male developed RUQ/epigastric pain over the weekend while at hunting camp. Having nausea, heartburn, decreased appetite. No previous abdominal symptoms. New onset A-fib also noted in ED. Allergies Allergy/AdvReac Type Severity Reaction Status Date / Time aspirin Allergy Unknown UNSURE Unverified 04/06/20 14:23 citric acid Allergy Unknown UNKNOWN Unverified 04/06/20 14:23 ibuprofen Allergy Unknown UNSURE Unverified 04/06/20 14:23 Home Medications Home Medications Medication Instructions Recorded Confirmed Type baclofen 10 mg PO BID PRN 04/06/20 04/06/20 History latanoprost [Xalatan] 1 drp OPB HS 04/06/20 04/06/20 History multivitamin 1 tab PO QAM 04/06/20 04/06/20 History timolol maleate 1 drp OPB BID 04/06/20 04/06/20 History tramadol 100 mg PO BID 04/06/20 04/06/20 History Patient History Medical History Glaucoma Surgical History History of surgery on upper extremity 1970s - trauma surgery to left upper extremity Social History Smoking Status: Former smoker Years Smoked: 3; Smoking End Date: ; Second Hand Exposure: No; Tobacco Cessation Education Requested by Patient: No Hx Alcohol Use: No Hx Substance Use: No Preferred Language: Romanian Communication Ability: Effective Technical Support Technician Required: No Beliefs That Will Affect Care: None Current Living Situation: Spouse 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, 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 Other Information That Helps Us Care for You: No Feels Safe at Home: Yes Safety Concerns: Feels Safe At This Time Assistive Devices: Denture - Upper and Glasses Review of Systems Constitutional: + fever, + malaise and + anorexia Gastrointestinal: + abdominal pain, + heartburn and + nausea Physical Exam Constitutional: WD/WN, vitals as above Respiratory: normal respiratory effort Cardiovascular: Rate/Rhythm: + tachycardic Gastrointestinal (Abdomen): Percussion/Palpation: + abdomen tender (RUQ), + guarding and abdomen soft Results & Data ([facility]) Vital Signs (Past 12 Hours) Vital Signs Temp Pulse Resp BP Pulse Ox 04/06/20 16:00 90 18 107/78 91 04/06/20 15:45 93 H 18 142/90 H 91 04/06/20 15:20 36.9 C 04/06/20 15:13 95 H 24 147/100 H 92 04/06/20 12:57 92 04/06/20 12:49 38.2 C H 117 H 20 127/99 92 PG Care Time/CCT Total # of Minutes Spent Total Time Spent with Patient: Total time spent is greater than 50% in coordination of care (as documented) at patient's floor/unit and/or counseling patient: Coding Level of Care Code 55632 Initial Inpt Care Lvl 3 Diagnoses Atrial fibrillation with RVR I48.91
[2020-04-06] MEDS ORDERED: SODIUM CHLORIDE 0.9% 1000ML 1,000 ML IV ONE (16:51)
[2020-04-06] MEDS ORDERED: MAGNESIUM SULFATE 1GM / D5W BAG IV ONE (17:22)
[2020-04-06] MEDS ORDERED: LIDOCAINE/EPINEPHRINE 1% 20 ML VIAL ONE (19:20)
--- NOTE | 2020-04-06 19:22 | Anesthesiology Consultation ---
Date of Service April 06, 2020 Assessment & Plan Chart Review Chart Review: Acceptable Risk for Surgery and Patient NOT seen in Pre Admission Testing Consults Requested none ASA [id number] Proposed Anesthesia Anesthesia Type: General History Surgery Operation Date: 04/06/20 19:30 Proposed Procedures p Laparoscopic Cholecystectomy with Cholangiogram(Not Applicable) - Rohit Chandra MD Height/Weight Height: 5 ft 10 in Weight: 94.8 kg Allergies Allergy/AdvReac Type Severity Reaction Status Date / Time aspirin Allergy Unknown UNSURE Unverified 04/06/20 14:23 citric acid Allergy Unknown UNKNOWN Unverified 04/06/20 14:23 ibuprofen Allergy Unknown UNSURE Unverified 04/06/20 14:23 Medications Home Medications Medication Instructions Recorded Confirmed Last Taken baclofen 10 mg PO BID PRN 04/06/20 04/06/20 Unknown latanoprost [Xalatan] 1 drp OPB HS 04/06/20 04/06/20 Unknown multivitamin 1 tab PO QAM 04/06/20 04/06/20 Unknown timolol maleate 1 drp OPB BID 04/06/20 04/06/20 Unknown tramadol 100 mg PO BID 04/06/20 04/06/20 Unknown Past Medical History Medical History Glaucoma Exercise / Class Metabolic Activity III < 4 Walking/Shop/Light housework Past Surgical History Surgical History History of surgery on upper extremity 1970s - trauma surgery to left upper extremity Past Anesthesia History No Hx of Anesthesia Complications and No Family Hx of Anesthesia Complications History of PONV No Hx of PONV and No Hx of Motion Sickness Social History Smoking Status: Former smoker Smoking End Date: Hx Alcohol Use: No alcohol intake frequency: other Alcohol Intake Frequency Comment: in the Hx Substance Use: No substance use type: does not use Physical Exam Vital Signs Last Vital Signs Temp 36.9 C 04/06/20 15:20 Pulse 97 H 04/06/20 19:00 Resp 18 04/06/20 19:00 BP 117/82 04/06/20 19:00 Pulse Ox 94 04/06/20 19:00 Testing Laboratory Results 04/06/20 12:43 04/06/20 12:43 PT 11.0 Seconds (9.0-12.0) 04/06/20 12:43 INR 1.0 (0.9-1.1) 04/06/20 12:43 APTT 29.1 Seconds (21.0-31.0) 04/06/20 12:43 04/06/20 14:36 POC Glucose 145 H
--- NOTE | 2020-04-06 19:27 | XRay Report ---
XR chest 1V portable CLINICAL HISTORY: Preoperative chest COMPARISON STUDY: 04/06/2020 FINDINGS: The heart is borderline enlarged. There is a scoliosis. There is no failure. There is no fo lucretia pulmonary consolidation. There are no pleural effusions.[There is minimal basilar atelectasis. IMPRESSION: No active disease in the chest. ACT 112: Negative or not required by law. Electronically signed by: Atif Francis M.D. 04/06/2020 7:25 PM
[2020-04-06] MEDS ORDERED: LABETALOL HCL IV 5 MG/ML 20ML IV PRN (19:41)
[2020-04-06] MEDS ORDERED: ONDANSETRON INJ 2 MG/ML 2 ML VIAL IV PRN (19:41)
[2020-04-06] MEDS ORDERED: FLUMAZENIL 0.1 MG/1 ML 10 ML VIAL IV PRN (19:41)
[2020-04-06] MEDS ORDERED: ATROPINE SULFATE 0.1 MG/ML 10ML SYR IV PRN (19:41)
[2020-04-06] MEDS ORDERED: ePHEDrine sulfate 50 MG/ML AMP IV PRN (19:41)
[2020-04-06] MEDS ORDERED: PROMETHAZINE HCL 12.5 MG in SODIUM CHLORIDE 0.9% 50 ML IV PRN (19:41)
[2020-04-06] MEDS ORDERED: NALOXONE HCL 0.4 MG/1 ML VIAL/CARP IV PRN (19:41)
[2020-04-06] MEDS ORDERED: PROPOFOL IV EMULSION 10 MG/ML 20 ML VIAL IV ONE (19:50)
[2020-04-06] MEDS ORDERED: SUCCINYLCHOLINE 100MG/5ML SYR IV ONE (19:51)
[2020-04-06] MEDS ORDERED: fentaNYL citrate 100 MCG/2 ML VIAL ONE ×3 (19:51→22:05)
[2020-04-06] MEDS ORDERED: MIDAZOLAM HCL 1 MG/ML 2ML VIAL ONE (19:51)
--- NOTE | 2020-04-06 20:02 | Emergency Department Note ---
History of Present Illness General Chief complaint: Weakness Time Seen by Provider: 04/06/20 12:46 Source: patient, family (), RN notes reviewed and old records reviewed Mode of arrival: ambulatory Limitations: no limitations History of Present Illness Provider complaint: Abdominal pain Onset (ago): day(s) 3 Location: abdomen Radiation: back Severity: moderate Pain Consistency: + intermittent Maximum Pain Intensity: 9 Current Pain Intensity: 9 Quality: + aching Relieved By: + immobilization Exacerbated By: + movement Associated symptoms: + diaphoresis, + fever/chills and + weakness; no chest pain, no headaches, no nausea/vomiting and no shortness of breath Treatments prior to arrival: none This 74-year-old male who presents emergency department complaining of 3-day history of generalized weakness that started Sunday. The patient notes he was out hunting on Sunday and felt too weak to continue hunting. He was also complaining of right upper quadrant abdominal pain at the time. The next day the patient's pulled a tick off his right leg. In the meanwhile he continued to have right upper quadrant abdominal pain that he describes as a burning sensation radiating into his back. He reports eating as well as movement makes the pain worse. Immobilization makes the pain better. Upon arrival to the emergency department he is also running a fever. He has not taken anything for the pain today. Home Medications Home Medications Medication Instructions Recorded Confirmed Type baclofen 10 mg PO BID PRN 04/06/20 04/06/20 History latanoprost [Xalatan] 1 drp OPB HS 04/06/20 04/06/20 History multivitamin 1 tab PO QAM 04/06/20 04/06/20 History timolol maleate 1 drp OPB BID 04/06/20 04/06/20 History tramadol 100 mg PO BID 04/06/20 04/06/20 History Allergies Allergy/AdvReac Type Severity Reaction Status Date / Time aspirin Allergy Unknown UNSURE Unverified 04/06/20 14:23 citric acid Allergy Unknown UNKNOWN Unverified 04/06/20 14:23 ibuprofen Allergy Unknown UNSURE Unverified 04/06/20 14:23 Past Med/Surg History Medical History Glaucoma Surgical History History of surgery on upper extremity 1970s - trauma surgery to left upper extremity Social History Smoking Status: Former smoker Years Smoked: 3; Smoking End Date: ; Second Hand Exposure: No; Tobacco Cessation Education Requested by Patient: No Hx Alcohol Use: No Hx Substance Use: No Preferred Language: Afghan Communication Ability: Effective Day Care Home Provider Required: No Beliefs That Will Affect Care: None Current Living Situation: Spouse 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, 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 Other Information That Helps Us Care for You: No Feels Safe at Home: Yes Safety Concerns: Feels Safe At This Time Assistive Devices: Denture - Upper and Glasses Review of Systems A total of 10 systems reviewed and were otherwise negative Physical Exam Vital Signs Vital Signs - 24 hr 04/06/20 12:49 04/06/20 12:57 04/06/20 15:13 Temperature 38.2 C H Temperature Source Oral Pulse Rate 117 H 95 H Respiratory Rate 20 24 Respiratory Effort / Characteristics Non-Labored Spontaneous Respiratory Depth Normal Respiratory Pattern Regular Blood Pressure 127/99 147/100 H Blood Pressure Mean 108 105 Blood Pressure Position Sitting Pulse Oximetry 92 92 92 Oxygen Delivery Method Room Air Room Air Sepsis Recent Fever Within 48 Hours No Sepsis New/Unexplained Change in Mental Status N/A Sepsis Action Taken by Nursing No Action Required 04/06/20 15:20 04/06/20 15:45 04/06/20 16:00 Temperature 36.9 C Temperature Source Oral Pulse Rate 93 H 90 Respiratory Rate 18 18 Respiratory Effort / Characteristics Respiratory Depth Respiratory Pattern Blood Pressure 142/90 H 107/78 Blood Pressure Mean 112 90 Blood Pressure Position Pulse Oximetry 91 91 Oxygen Delivery Method Sepsis Recent Fever Within 48 Hours Sepsis New/Unexplained Change in Mental Status Sepsis Action Taken by Nursing 04/06/20 16:30 04/06/20 17:00 04/06/20 18:00 Temperature Temperature Source Pulse Rate 95 H 98 H 97 H Respiratory Rate 13 15 18 Respiratory Effort / Characteristics Respiratory Depth Respiratory Pattern Blood Pressure 123/92 110/87 121/83 Blood Pressure Mean 108 95 97 Blood Pressure Position Pulse Oximetry 95 94 93 Oxygen Delivery Method Room Air Room Air Sepsis Recent Fever Within 48 Hours Sepsis New/Unexplained Change in Mental Status Sepsis Action Taken by Nursing 04/06/20 18:30 04/06/20 19:00 Temperature Temperature Source Pulse Rate 93 H 97 H Respiratory Rate 18 Respiratory Effort / Characteristics Respiratory Depth Respiratory Pattern Blood Pressure 110/71 117/82 Blood Pressure Mean 75 88 Blood Pressure Position Pulse Oximetry 95 94 Oxygen Delivery Method Room Air Room Air Sepsis Recent Fever Within 48 Hours Sepsis New/Unexplained Change in Mental Status Sepsis Action Taken by Nursing VITAL SIGNS - Vital signs and nursing notes were reviewed. GENERAL - 74-year-old male appearing stated age who is in no acute distress. Communicates well with provider and answers questions appropriately. SKIN - Without rashes. HEAD - NC/AT. EYES - PERRL with EOMI bilaterally. Sclera anicteric. Palpebral conjunctiva pink and moist with no injection noted. EARS - No deformities of external structures noted on gross examination bilaterally. No pain elicited with palpation of the tragus bilaterally. External auditory canals without discharge or otorrhea. Tympanic membranes pearly tellez without retraction or bulging. No fluid or purulent material visualized behind the TM. Handle of malleus, umbo, cone of light, pars tensa/flaccid all easily v isualized. NOSE - Midline and without cyanosis. No epistaxis or purulent drainage noted. Septum midline without deviation or septal hematoma noted. MOUTH/OROPHARYNX - Without perioral cyanosis. Buccal mucosa pink and moist and without leukoplakia. Tongue midline with equal elevation of palate bilaterally. No tonsillar hypertrophy, erythema, or exudates noted. dentition noted. NECK - Neck with FROM. Supple to palpation. lymphadenopathy noted. No nuchal rigidity. LUNGS - Chest wall symmetric without accessory muscle use, intercostals retractions, or central cyanosis. Normal vesicular breath sounds CTA B/L. No wheezes, rales, or rhonchi appreciated. CARDIAC - RRR with S1/S2. No murmur, rubs, or gallops appreciated. ABDOMEN - Abdominal contour without pulsations or visible masses. BS normoactive all four quadrants. +tender RUQ, No palpable masses, hepatosplenomegaly, or ascites noted. EXTREMITIES - No clubbing or peripheral cyanosis. No pretibial edema present. +3/5 radial, posterior tibial, and dorsalis pedis pulses palpated throughout. +5/5 strength noted in UE/LE bilaterally. NEUROLOGIC - Cranial nerves II through XII grossly intact. Sensory intact to light touch throughout. Patellar reflexes +2/4. PSYCH - A&Ox3 and cooperates fully with examiner. Pt is very pleasant and interacts well with examiner. Course Administered Medications Discontinued Medications Doxycycline Hyclate (Doxycycline Hyclate 100 Mg Cap) 100 mg PO NOW STA Stop: 04/06/20 12:58 Last Admin: 04/06/20 13:31 Dose: 100 mg Documented by: [id number] Famotidine (Famotidine 20mg/5ml Iv Push) 20 mg IV ONE STA Stop: 04/06/20 16:27 Last Admin: 04/06/20 16:42 Dose: 20 mg Documented by: [id number] Ceftriaxone Sodium (Rocephin) 2,000 mg in 70 mls @ 140 mls/hr IV NOW STA Stop: 04/06/20 13:26 Last Infusion: 04/06/20 14:12 Dose: 0 mls/hr Documented by: [id number] Admin: 04/06/20 13:31 Dose: 140 mls/hr Documented by: [id number] Acetaminophen (Ofirmev) 1,000 mg in 100 mls @ 400 mls/hr IV NOW STA Stop: 04/06/20 13:11 Last Infusion: 04/06/20 13:47 Dose: 0 mls/hr Documented by: [id number] Admin: 04/06/20 13:31 Dose: 400 mls/hr Documented by: [id number] Magnesium Sulfate/Dextrose (Magnesium Sulfate / D5w) 1 gm in 100 mls @ 200 mls/hr IV Q30M JERRY Stop: 04/06/20 14:30 Last Infusion: 04/06/20 16:21 Dose: 0 mls/hr Documented by: [id number] Admin: 04/06/20 15:51 Dose: 200 mls/hr Documented by: [id number] Infusion: 04/06/20 14:46 Dose: 0 mls/hr Documented by: [id number] Admin: 04/06/20 14:16 Dose: 200 mls/hr Documented by: [id number] Magnesium Sulfate/Dextrose (Magnesium Sulfate / D5w) 1 gm in 100 mls @ 200 mls/hr IV Q30M JERRY Stop: 04/06/20 14:30 Last Infusion: 04/06/20 17:53 Dose: 0 mls/hr Documented by: [id number] Admin: 04/06/20 17:23 Dose: 200 mls/hr Documented by: [id number] Infusion: 04/06/20 17:17 Dose: 200 mls/hr Documented by: [id number] Admin: 04/06/20 16:47 Dose: 200 mls/hr Documented by: [id number] Piperacillin Sod/Tazobactam Sod (Zosyn) 4.5 gm in 120 mls @ 240 mls/hr IV NOW ONE Stop: 04/06/20 16:47 Last Infusion: 04/06/20 17:12 Dose: 0 mls/hr Documented by: [id number] Admin: 04/06/20 16:42 Dose: 240 mls/hr Documented by: [id number] Sodium Chloride (Nss 1000ml) 1,000 mls @ 999 mls/hr IV .Q1H1M ONE Stop: 04/06/20 17:51 Last Infusion: 04/06/20 18:24 Dose: 0 mls/hr Documented by: [id number] Admin: 04/06/20 17:23 Dose: 999 mls/hr Documented by: [id number] Ioversol (Optiray 320 125ml) 120 ml IV ONCE ONE Stop: 04/06/20 15:42 Last Admin: 04/06/20 15:42 Dose: 120 ml Documented by: [id number] Magnesium Sulfate/Dextrose (Magnesium Sulfate 1gm / D5w Bag) Confirm Administered Dose 1 gm IV .STK-MED ONE Stop: 04/06/20 17:23 Last Admin: 04/06/20 17:36 Dose: Not Given Documented by: [id number] Potassium Chloride (Potassium Chloride 20 Meq Tabcr) 40 meq PO NOW STA Stop: 04/06/20 13:31 Last Admin: 04/06/20 13:33 Dose: 40 meq Documented by: [id number] Critical Care Time I have personally spent greater than 63 minutes of critical care time in the direct management of this patient. This includes bedside care, interpretation of diagnostic studies, and testing, discussion with consultants, patient, and family members, and other required patient management activities. This 63 minutes is in excess of all separately billable procedures. Medical Decision Making Differential Diagnosis Appendicitis, testicular torsion, infections, diverticulitis, UTI, obstruction, mesenteric ischemia, aortic pathology, inflammatory bowel disease, renal colic, PUD, pancreatitis, biliary pathology, hernia, volvulus, constipation, as well as other pathologies. Medical Records Attestation: I reviewed the patient's medical records. Home Medications Current Medication List: was personally reviewed by me Laboratory Data Attestation: I reviewed the patient's lab results. Result diagrams: 04/06/20 12:43 04/06/20 12:43 Lab Results 04/06/20 04/06/20 04/06/20 Range/Units 12:43 12:43 12:43 WBC 10.08 (4.8-10.8) K/uL RBC 4.79 (4.7-6.1) M/uL Hgb 14.9 (14.0-18.0) g/dL Hct 43.3 (42-52) % MCV 90.4 (80-100) fL MCH 31.1 (25-34) pg MCHC 34.4 (32-36) g/dL RDW Std Deviation 43.6 (36.4-46.3) fL RDW Coeff of Jose Elias 13.3 (11.5-14.5) % Plt Count 171 (130-400) K/uL MPV 11.0 H (7.4-10.4) fL Immature Gran % (Auto) 0.3 % Neut % (Auto) 87.6 % Lymph % (Auto) 4.5 % Houghton % (Auto) 7.5 % Eos % (Auto) 0.0 % Baso % (Auto) 0.1 % Neut # (Auto) 8.83 H (1.4-6.5) K/uL Lymph # (Auto) 0.45 L (1.2-3.4) K/uL Houghton # (Auto) 0.76 H (0.11-0.59) K/uL Eos # (Auto) 0.00 (0-0.5) K/uL Baso # (Auto) 0.01 (0-0.2) K/uL Immature Gran # (Auto) 0.03 H (0.00-0.02) K/uL PT 11.0 (9.0-12.0) Seconds INR 1.0 (0.9-1.1) APTT 29.1 (21.0-31.0) Seconds PTT Ratio 1.0 D-Dimer (0-500) ug/L FEU Sodium 133 L (136-145) mmol/L Potassium 3.4 L (3.5-5.1) mmol/L Chloride 100 (98-107) mmol/L Carbon Dioxide 24 (21-32) mmol/L Anion Gap 9.0 (3-11) BUN 28 H (7-18) mg/dl Creatinine 0.82 (0.6-1.4) mg/dl Est Cr Clr Drug Dosing 92.7 ml/min Est GFR ( Amer) 101.7 Est GFR (Non-Af Amer) 87.7 BUN/Creatinine Ratio 34.3 H (10-20) Glucose 137 H (70-99) mg/dl POC Glucose (70-99) mg/dl Calcium 9.6 (8.5-10.1) mg/dl Total Bilirubin 0.7 (0.2-1) mg/dl AST 33 (15-37) U/L ALT 34 (12-78) U/L Alkaline Phosphatase 114 (45-117) U/L Total Creatine Kinase 122 (39-308) U/L CK-MB (CK-2) < 1.0 (0.5-3.6) ng/ml CK/CKMB % Calc TNP Troponin I < 0.015 (0-0.045) ng/ml Total Protein 7.9 (6.4-8.2) gm/dl Albumin 3.0 L (3.4-5.0) gm/dl Globulin 4.9 H (2.5-4.0) gm/dl Albumin/Globulin Ratio 0.6 L (0.9-2) Lipase 202 (73-393) U/L TSH (0.300-4.500) uIu/ml Lyme Disease IgG Ab (Negative) Lyme Disease IgM Ab (Negative) COVID-19 Eval Order COVID-19 PCR (Negative) 04/06/20 04/06/20 04/06/20 Range/Units 12:43 12:43 12:43 WBC (4.8-10.8) K/uL RBC (4.7-6.1) M/uL Hgb (14.0-18.0) g/dL Hct (42-52) % MCV (80-100) fL MCH (25-34) pg MCHC (32-36) g/dL RDW Std Deviation (36.4-46.3) fL RDW Coeff of Jose Elias (11.5-14.5) % Plt Count (130-400) K/uL MPV (7.4-10.4) fL Immature Gran % (Auto) % Neut % (Auto) % Lymph % (Auto) % Houghton % (Auto) % Eos % (Auto) % Baso % (Auto) % Neut # (Auto) (1.4-6.5) K/uL Lymph # (Auto) (1.2-3.4) K/uL Houghton # (Auto) (0.11-0.59) K/uL Eos # (Auto) (0-0.5) K/uL Baso # (Auto) (0-0.2) K/uL Immature Gran # (Auto) (0.00-0.02) K/uL PT (9.0-12.0) Seconds INR (0.9-1.1) APTT (21.0-31.0) Seconds PTT Ratio D-Dimer 5960 H* (0-500) ug/L FEU Sodium (136-145) mmol/L Potassium (3.5-5.1) mmol/L Chloride (98-107) mmol/L Carbon Dioxide (21-32) mmol/L Anion Gap (3-11) BUN (7-18) mg/dl Creatinine (0.6-1.4) mg/dl Est Cr Clr Drug Dosing ml/min Est GFR ( Amer) Est GFR (Non-Af Amer) BUN/Creatinine Ratio (10-20) Glucose (70-99) mg/dl POC Glucose (70-99) mg/dl Calcium (8.5-10.1) mg/dl Total Bilirubin (0.2-1) mg/dl AST (15-37) U/L ALT (12-78) U/L Alkaline Phosphatase (45-117) U/L Total Creatine Kinase (39-308) U/L CK-MB (CK-2) (0.5-3.6) ng/ml CK/CKMB % Calc Troponin I (0-0.045) ng/ml Total Protein (6.4-8.2) gm/dl Albumin (3.4-5.0) gm/dl Globulin (2.5-4.0) gm/dl Albumin/Globulin Ratio (0.9-2) Lipase (73-393) U/L TSH 1.130 (0.300-4.500) uIu/ml Lyme Disease IgG Ab Negative (Negative) Lyme Disease IgM Ab Negative (Negative) COVID-19 Eval Order COVID-19 PCR (Negative) 04/06/20 04/06/20 04/06/20 Range/Units 13:14 13:14 14:36 WBC (4.8-10.8) K/uL RBC (4.7-6.1) M/uL Hgb (14.0-18.0) g/dL Hct (42-52) % MCV (80-100) fL MCH (25-34) pg MCHC (32-36) g/dL RDW Std Deviation (36.4-46.3) fL RDW Coeff of Jose Elias (11.5-14.5) % Plt Count (130-400) K/uL MPV (7.4-10.4) fL Immature Gran % (Auto) % Neut % (Auto) % Lymph % (Auto) % Houghton % (Auto) % Eos % (Auto) % Baso % (Auto) % Neut # (Auto) (1.4-6.5) K/uL Lymph # (Auto) (1.2-3.4) K/uL [place] # (Auto) (0.11-0.59) K/uL Eos # (Auto) (0-0.5) K/uL Baso # (Auto) (0-0.2) K/uL Immature Gran # (Auto) (0.00-0.02) K/uL PT (9.0-12.0) Seconds INR (0.9-1.1) APTT (21.0-31.0) Seconds PTT Ratio D-Dimer (0-500) ug/L FEU Sodium (136-145) mmol/L Potassium (3.5-5.1) mmol/L Chloride (98-107) mmol/L Carbon Dioxide (21-32) mmol/L Anion Gap (3-11) BUN (7-18) mg/dl Creatinine (0.6-1.4) mg/dl Est Cr Clr Drug Dosing ml/min Est GFR ( Amer) Est GFR (Non-Af Amer) BUN/Creatinine Ratio (10-20) Glucose (70-99) mg/dl POC Glucose 145 H (70-99) mg/dl Calcium (8.5-10.1) mg/dl Total Bilirubin (0.2-1) mg/dl AST (15-37) U/L ALT (12-78) U/L Alkaline Phosphatase (45-117) U/L Total Creatine Kinase (39-308) U/L CK-MB (CK-2) (0.5-3.6) ng/ml CK/CKMB % Calc Troponin I (0-0.045) ng/ml Total Protein (6.4-8.2) gm/dl Albumin (3.4-5.0) gm/dl Globulin (2.5-4.0) gm/dl Albumin/Globulin Ratio (0.9-2) Lipase (73-393) U/L TSH (0.300-4.500) uIu/ml Lyme Disease IgG Ab (Negative) Lyme Disease IgM Ab (Negative) COVID-19 Eval Order Covid19 Done at [facility] COVID-19 PCR NEGATIVE (Negative) Imaging Data Radiologist's Impression: [facility], [id number] XRay Report Patient: SHONDA MILLAN Date: 04/06/20MR#: [id number]: [id number] ID:[id number]: Date: 1945[facility] Zip: [place], [place] [address]Mzi: 74Location: EDSex: MRoom/Bed:Att Phy:Diagnosis: WE AKNESS,RAPID AFIBPri Phy: Carlee Stafford PA-CService Date: 04/06/20Fa Phy:Interpreting Phy: Atif Francis MDAdmit Phy: Ordering Phy: Rohit Chandra MD cc: ~ XR chest 1V portable CLINICAL HISTORY: Preoperative chest COMPARISON STUDY: 04/06/2020 FINDINGS: The heart is borderline enlarged. There is a scoliosis. There is no failure. There is no focal pulmonary consolidation. There are no pleural effusions.[There is minimal basilar atelectasis. IMPRESSION: No active disease in the chest. ACT 112: Negative or not required by law. Electronically signed by: Atif Francis M.D. 04/06/2020 7:25 PM Dictated: 04/06/201923Transcribed: 04/06/201923 [facility], [id number] CT Scan Report Patient: SHONDA MILLAN Date: 04/06/20MR#: [id number]: [address] AVEAcct ID:[id number]: Date: 1945[facility] Zip: [place], [place] [address]Acg: 74Location: EDSex: MRoom/Bed:Att Phy:Diagnosis: WEAKNESS,RAPID AFIBPri Phy: Carlee Stafford PA-CService Date: 04/06/20Fa Phy:Interpreting Phy: Rogelio Oliveros MDAdmit Phy: Ordering Phy: Darren Walker MD cc: ~ CT SCAN OF THE ABDOMEN AND PELVIS WITH IV CONTRAST CLINICAL HISTORY: Right upper quadrant abdominal pain. COMPARISON STUDY: Abdominal CT dated 06/03/2016. TECHNIQUE: Following the IV administration of 120 cc of Optiray 320, CT scan of the abdomen and pelvis is performed from the lung bases to the proximal femora. Images are reviewed in the axial, sagittal, and coronal planes. IV contrast was administered without complication. A dose lowering technique was utilized adhering to the principles of ALARA. CT DOSE: 1536.20 mGy.cm FINDINGS: Lung bases: The heart is normal in size and without pericardial effusion. The coronary arteries are densely calcified. There is a trace right pleural effusion and bibasilar atelectasis. No airspace consolidation is seen typical for pneumonia. There is a small hiatal hernia. Circumferential wall thickening is noted in the distal esophagus. Liver: The contrast-enhanced liver is normal in size, contour, and attenuation. There is no intrahepatic biliary ductal dilatation. The hepatic veins and portal veins are patent. Gallbladder: The gallbladder is distended. The gallbladder wall is edematous and hyperemic, and no significant pericholecystic stranding and fluid. Findings are consistent with acute cholecystitis. There is a mucosal defect along the posterior wall of the gallbladder suggesting gangrenous change/perforation. Inflammatory change and fluid tracking inferiorly along the right paracolic gutter. Spleen: Normal in size and attenuation. Pancreas: Moderately atrophic and grossly unremarkable. Adrenal glands: Unremarkable. Kidneys: The contrast enhanced kidneys demonstrate cortical atrophy and are without hydronephrosis. 1.4 cm cyst is noted in the interpolar left kidney. Additional subcentimeter cortical hypodensities also likely represent cysts but are too small for definitive characterization. Cortical scarring is seen in the left kidney. The kidneys enhance symmetrically. Abdominal vasculature: The abdominal aorta is normal in course and caliber notin g mild atherosclerotic calcification. Bowel: There is mild colonic diverticulosis without CT evidence of acute diverticulitis. No bowel obstruction is seen. The appendix is well-visualized and normal. Peritoneum: There is no intraperitoneal free air or abdominal ascites. Lymphadenopathy: None. Pelvic viscera: The bladder, prostate, and seminal vesicles are normal as visualized. Skeletal structures: The skeletal structures are osteopenic. Moderate lumbosacral spondylosis is observed. No lytic or blastic lesions are seen. IMPRESSION: 1. Findings are consistent with acute cholecystitis, likely with gangrenous change/perforation. 2. Trace right pleural effusion. 3. Advanced coronary artery calcification. 4. Additional findings as above. ACT 112: Negative or not required by law. Electronically signed by: Rogelio Oliveros M.D. 04/06/2020 3:55 PM Dictated: 04/06/20 1543Transcribed: 04/06/20 1543 [facility], [id number] CT Scan Report Patient: SHONDA MILLAN Date: 04/06/20MR#: [id number]: [id number] ID:[id number]: Date: 1945[facility] Zip: [place], [place] [address]Fhm: 74Location: EDSex: MRoom/Bed:Att Phy:Diagnosis: WEAKNESS,RAPID AFIBPri Phy: Carlee Stafford PA-CService Date: 04/06/20Fam Phy:Interpreting Phy: Ray PalaciosAdmit Phy: Ordering Phy: Darren Walker MD cc: ~ CT angio chest PE protocol HISTORY: 74 years-old Male with PE. Acute shortness of breath with right upper quadrant abdominal pain TECHNIQUE: Multiple CTA images of the chest were obtained after the intravenous administration of 120 ml Optiray 320. Coronal and sagittal MIPS were obtained from the axial data set and were submitted for review. All measurements were obtained according to NASCET criteria. A dose lowering technique was utilized adhering to the principles of ALARA. COMPARISON: CT abdomen and pelvis and abdominal ultrasound of same day FINDINGS: CTA: Moderate cardiomegaly. Moderate to extensive coronary artery calcifications. Fusiform dilation of the ascending thoracic aorta which is not well opacified and measures 4.2 x 4.2 cm. Descending thoracic tortuosity. Areas of decreased attenuation within the lobar, segmental and subsegmental branches of the right lower lobe suggests mixing artifact. No definite evidence of thromboembolic disease. CT CHEST: Unremarkable thyroid. No adenopathy. Trace left and small right pleural effusions. Dependent subsegmental bibasilar opacities suggest atelectasis. There is mild bilateral bronchial wall thickening suggestive of bronchitis or reactive airway disease. No overt pulmonary edema, suspicious pulmonary nodule or mass. Central airways are patent. There is moderate mid and distal esophageal wall thickening. Mild periesophageal stranding. Edematous gallbladder wall thickening with pericholecystic edema is partially imaged. Gynecomastia. Degenerative changes of the spine and shoulders. There is no acute fracture or suspicious bone lesion. IMPRESSION: 1. Cardiomegaly without evidence of pulmonary thromboembolic disease. 2. Fusiform dilation of the ascending thoracic aorta, 4.2 x 4.2 cm 3. Trace left and small right pleural effusions with dependent bibasilar opacities suggestive of atelectasis. 4. Partially imaged edematous gallbladder wall thickening with pericholecystic fluid suggestive of acute cholecystitis. Please refer to CT abdomen and pelvis study of same day for additional findings. 5. Moderate wall thickening of the mid and distal esophagus with mild periesophageal stranding, possibly reflective of esophagitis. ACT 112: Negative or not required by law. The above report was generated using voice recognition software. It may contain grammatical, syntax or spelling errors. Electronically signed by: Frank Palacios M.D. 04/06/2020 3:57 PM Dictated: 04/06/20 154Transcribed: 04/06/201542 [facility], [id number] Ultrasound Report Patient: SHONDA MILLAN Date: 04/06/20#: [id number]: [address] [place] [address] AVEAcct ID:[id number]: Date: 1945City Zip: [place], [place] [address]Lvq: 74Location: EDSex: MRoom/Bed:Att Phy:Diagnosis: WEAKNESS,RAPID AFIBPri Phy: Carlee Stafford PA-CService Date: 04/06/20Fam Phy:Interpreting Phy: Ray PalaciosAdmit Phy: Ordering Phy: Darren Walker MD cc: ~ US abdomen limited HISTORY: 74 years-old Male Pt c/o RUQ abd pain . Right upper quadrant abdominal pain COMPARISON: CT abdomen and pelvis 06/03/2016 TECHNIQUE: Multiple real-time sonographic images of the abdominal right upper quadrant were obtained assessing grayscale appearance and color flow FINDINGS: The pancreas is mostly obscured by bowel gas. Increased echogenicity of the liver suggests probable hepatic steatosis. Ill-defined area decreased echogenicity of the liver noted adjacent to the loida hepatis measuring 2.0 cm suggests fatty sparing. No intrahepatic biliary ductal dilation. The gallbladder is moderately distended and demonstrates edematous wall thickening measuring up to 6 mm. Trace pericholecystic fluid. Cholelithiasis with layering gallbladder sludge. Sonographic Browne sign was unable to be assessed secondary to patient recently receiving pain medication. The entry table operator does report that the patient experienced subjective right upper quadrant tenderness. Common bile duct is mildly dilated measuring 1.1 cm. Unremarkable right kidney without hydronephrosis. IMPRESSION: 1. Cholelithiasis with edematous wall thickening and pericholecystic fluid is suspicious for acute cholecystitis. 2. Mild dilation of the common bile duct without obstructing biliary stone or lesion identified. 3. Increased echogenicity of the liver suggests hepatic steatosis. ACT 112: Negative or not required by law. The above report was generated using voice recognition software. It may contain grammatical, syntax or spelling errors. Electronically signed by: Frank Palacios M.D. 04/06/2020 3:22 PM Dictated: 04/06/20 1516Transcribed: 04/06/201515 [facility], [id number] XRay Report Patient: SHONDA MILLANAdmit Date: 04/06/20MR#: [id number]: Rosendo NOGUERA AVEAcct ID:[id number]: Date: 1945City Zip: [place], [place] [address]Thn: 74Location: EDSex: MRoom/Bed:Att Phy:Diagnosis: WEAKNESS,RAPID AFIBPri Phy: Carlee Stafford PA-CService Date: 04/06/20Fa Phy:Interpreting Phy: Atif Francis MDAdmit Phy: Ordering Phy: Darren Walker MD cc: ~ XR chest 1V portable CLINICAL HISTORY: Atypical chest pain COMPARISON STUDY: No previous studies for comparison. FINDINGS: The heart is the upper limits of normal in size. There is mild central vascular prominence without evidence of overt failure. There is no lobar consolidation. There are no pleural effusions. There is mild basilar atelectasis.[ IMPRESSION: 1. AP portable study 2. No evidence of focal pulmonary consolidation 3. Mild basilar atelectasis ACT 112: Negative or not required by law. Electronically signed by: Atif Francis M.D. 04/06/2020 1:47 PM Dictated: 04/06/20 1346Transcribed: 04/06/20 134 ECG Data Attestation: I personally reviewed and interpreted this ECG as follows: Indication: + abdominal pain Rate (beats per minute): 119 Rhythm: + atrial fibrillation ECG Intervals/blocks: + Right Bundle branch block and + Normal QT-c (497) ECG Keller: + Normal ECG ST segments: no ST depression and no ST elevation Comparison ECG Date: from (03/15/2002) Change: the following changes noted (Afib has resplaced NSR) Additional Comments: Repeat EKG shows A. fib with RVR with PVC right bundle branch block bifascicular block compared to the previous EKG no significant change, rate of 101 MDM Narrative Patient was seen and evaluated as above in room B11. Review was performed of nursing notes and vital signs. I did review pertinent previous visits and patient history. After obtaining a thorough history and physical examination the above work up was performed. This is a 74-year-old male who presents emergency department complaining of generalized weakness as well as a tick bite that occurred on Sunday and right upper quadrant abdominal pain. Due to the tick bite the patient was started on IV Rocephin as well as doxycycline however his ultrasound was concerning for acute cholecystitis. The patient was then sent for CAT scan of the chest abdomen pelvis which was also concerning for acute cholecystitis. I did discuss the case with the surgeon did agree to take the patient to the operating room in the meanwhile the patient was given Tylenol for his pain and fever. Hospitalist was also made aware of the patient. Because the patient is also in a new onset atrial fibrillation he was started on 4 g of magnesium here in the emergency department. An order was placed for continuous cardiac monitoring. The monitor shows a rate of 97 with afib rhythm. The patient was evaluated during the global COVID-19 pandemic, and that diagnosis was suspected/considered upon their initial presentation. Their e valuation, treatment and testing was consistent with current guidelines for patients who present with complaints or symptoms that may be related to COVID- 19. Impression & Plan Atrial fibrillation with RVR, Acute cholecystitis Discharge Plan Visit Data Chief Complaint: Weakness ED Provider: Darren Walker Discharge Problem: Atrial fibrillation with RVR, Acute cholecystitis Patient Disposition: Still a Patient Discharge Instructions Interventions: ED Discharge Assessment Last Done: 04/06/20 19:17
[2020-04-06] MEDS ORDERED: METOPROLOL TARTRATE 1 MG/ML VIAL IV ONE (20:45)
[2020-04-06] MEDS ORDERED: CISATRACURIUM BESYLATE IV SOLN 2 MG/ML 10 ML VIAL IV ONE (20:45)
[2020-04-06] MEDS ORDERED: LABETALOL HCL IV 5 MG/ML 20ML IV ONE (21:24)
[2020-04-06] MEDS ORDERED: OPTIRAY 300 INJ ONE (21:28)
--- NOTE | 2020-04-06 21:28 | Post Operative Brief Note ---
PG Immediate Post Op with CF Date of Surgery April 06, 2020 Pre & Post Diagnosis Operation Date: 04/06/20 19:30 Pre-Op Diagnosis: Acute Cholecystitis Post-Op Diagnosis: Acute Cholecystitis I identified the patient and participated in the time-out.: Yes Procedure Operation Date: 04/06/20 19:30 Actual Procedures p Laparoscopic Cholecystectomy with Cholangiogram(Not Applicable) - Rohit Chandra MD Surgeon Rohit Chandra MD Molded [employer] Inspector johnny Stafford Estimated Blood Loss 50 Findings Consistent with Post-Op Diagnosis Specimens Specimen Description: Permanent A. Gallbladder and Contents Culture 1. Gallbladder Culture Drains Zac-Alvarado Drain
[2020-04-06] MEDS ORDERED: GLYCOPYRROLATE 0.2 MG/ML VIAL ONE (21:33)
[2020-04-06] MEDS ORDERED: NEOSTIGMINE METHYLSULFATE 5 MG/5 ML SYR ONE (21:33)
--- NOTE | 2020-04-06 21:47 | Operative Report ---
PG Post Operative Report Pre & Post Diagnosis Operation Date: 04/06/20 19:30 Pre-Op Diagnosis: Acute Cholecystitis Post-Op Diagnosis: Acute Cholecystitis I identified the patient and participated in the time-out.: Yes Procedure Operation Date: 04/06/20 19:30 Actual Procedures p Laparoscopic Cholecystectomy with Cholangiogram(Not Applicable) - Rohit Chandra MD The patient was brought into the operating theater supine position general endotracheal anesthesia timeout was had for Covid protocol the abdomen was shaved and prepped with Betadine solution properly draped timeout was called patient identified small incision transversely above the umbilicus sufficient to place a Veress needle followed by CO2 followed by 5 mm trocar followed by the scope 1 3 entry abdomen we seem like we were underneath the omentum but we can see some fibrinous very fine adhesions to the anterior abdominal wall even though the patient has not had any previous abdominal surgery we broke through then we got into the plane where there were no adhesions we be able to see right upper quadrant without any difficulty we then placed 5 mm epigastric trocar with preemptive local analgesia and 2 5 mm subcostal trochars at this point we can see that the omentum was draped completely right lobe of the liver where the omentum was likely encasing the gallbladder lateral to the right lobe of the liver there is some free fluid and some fibrin bilious in nature pretty much reflecting the gangrenous cholecystitis with perforation likely a we would be seen this point we bluntly freed up the omentum encasing the gallbladder and to see patchy necrosis of the gallbladder we were able then since it was tense we drained it was aspirating needle then were able to elevated and our dissection was carried out towards the neck of the gallbladder which we did mostly bluntly with the tip of a sucker with able to identify the cystic duct coming off the neck of the gallbladder actually was quite short we could see the common bile duct and at this point I clipped it with a 5 mm clip right at the takeoff made a small opening the cystic duct #4 urethral catheter transversing abdominal wall and a 14 Angiocath was positioned cystic duct serial x-rays taken showed free flow and duodenum no obstruction although the distal common bile duct appeared to be more dilated than normal most likely aneurysm Cholangiocath was then removed cystic duct was doubly clipped and divided gallbladder was taken off the liver mostly by blunt dissection leaving as much posterior peritoneum was possible we did enter the gallbladder in the midportion which I am not sure was related to a grasper where the perforation may have been some bilirubinate stones we could see come off the research millimeters in size and we were able to elevate more we identified the cystic artery quite easily doubly clipped approximately 1 distally and divided once the gallbladder was freed from the liver we placed in an Endopouch a 10 mm we change the epigastric 11 mm trochars increased since gallbladder was pretty much thickened and in normal felt there would be easier to care to a 10 mm and it came out intact was sent for cultures and sensitivity this point the subhepatic area was suctioned out copiously and appear satisfactory we had placed the camera lateral right upper quadrant port to visualize her initial entry in the umbilical area and there was no injury identified in that area I elected to drain the subhepatic area after second had out using a Gee drain in 19 taken out the epigastric area taken a lot to lateral to the right upper quadrant port attaching skin edge with 2-0 silk the area was then checked hemostasis again satisfactory we closed the subcostal and umbilical opening with 4-0 Vicryl we used an 0 Vicryl [id number] to close the fascial stitch in the epigastric point and 4-0 Monocryl Steri-Strips applied procedure was tolerated well by the patient estimated blood loss 50 cc addendNegar BUSTOS was present throughout the case and helped the retraction exposure and wound closure Surgeon Rohit Chandra MD Lead Ramp Agent johnny Stafford Estimated Blood Loss 50 Findings Consistent with Post-Op Diagnosis Specimens gallbladder and contents Description of Procedure merda I attest to the content of the Intraoperative Record and any orders documented therein. Any exceptions are noted below.
[2020-04-06] MEDS ORDERED: ONDANSETRON INJ 2 MG/ML 2 ML VIAL ONE (22:05)
[2020-04-06] MEDS: fentaNYL citrate 100 MCG/2 ML VIAL IV PRN ×4 (22:05→22:20)
--- NOTE | 2020-04-06 22:40 | Anesthesiology Progress Note ---
Date of Service April 06, 2020 Anesthesia Post Procedure Vital Signs Vital Signs: Temp Pulse Pulse Resp BP BP Pulse Ox 04/06/20 22:30 100 H 24 140/95 99 04/06/20 22:20 88 18 122/70 98 04/06/20 22:10 100 H 22 146/97 H 97 04/06/20 22:00 104 H 25 H 147/94 H 93 04/06/20 21:51 36.1 C L 92 H 24 158/110 H 95 04/06/20 19:00 97 H 18 117/82 94 04/06/20 18:30 93 H 110/71 95 04/06/20 18:00 97 H 18 121/83 93 04/06/20 17:00 98 H 15 110/87 94 04/06/20 16:30 95 H 13 123/92 95 04/06/20 16:00 90 18 107/78 91 04/06/20 15:45 93 H 18 142/90 H 91 04/06/20 15:20 36.9 C 04/06/20 15:13 95 H 24 147/100 H 92 04/06/20 12:57 92 04/06/20 12:49 38.2 C H 117 H 20 127/99 92 Pain Intensity Abdomen: Pain Intensity: 6 Transfer of Care Handoff Completed per policy Notes Mental Status: alert / awake / arousable Patient Amnestic to Procedure: Yes Nausea / Vomiting: adequately controlled Pain: adequately controlled Airway Patency, RR, SpO2: stable & adequate BP & HR: stable & adequate Hydration State: stable & adequate Anesthetic Complications: no major complications apparent
[2020-04-06] MEDS ORDERED: BACLOFEN 10 MG TAB PO PRN ×2 (23:49)
[2020-04-07] MEDS: LACTATED RINGER'S 1,000 ML IV SCH ×4 (00:18→21:48)
[2020-04-07] MEDS: TIMOLOL MALEATE 0.25% OP SOLN 5 ML BTL OPB SCH ×3 (00:25→20:26)
[2020-04-07] MEDS: LATANOPROST 0.005% OP SOLN 2.5 ML BTL OPB SCH ×2 (00:25→20:26)
[2020-04-07] MEDS: ACETAMINOPHEN 1,000 MG/100 ML VIAL IV SCH ×3 (00:26→16:00)
[2020-04-07] MEDS: PIPERACILLIN/TAZOBACTAM 3.375 GM in DEXTROSE 5% 100 ML IV SCH ×3 (00:27→16:13)
[2020-04-07] MEDS: MoRPHine SULFATE 4 MG/ML 1 ML CARP\\VIAL IV PRN ×5 (01:22→20:14)
[2020-04-07] MEDS: ONDANSETRON INJ 2 MG/ML 2 ML VIAL IV PRN (04:57)
[2020-04-07 07:14] LABS: Hematocrit (blood only) 40.9 % (42-52); Hemoglobin 13.8 g/dL (14.0-18.0); Immature Granulocytes # (auto) 0.04 K/uL (0.00-0.02); Immature Granulocytes % (auto) 0.4 %; Lymphocytes # (auto) 0.61 K/uL (1.2-3.4); Lymphocytes % (auto) 5.5 %; Mean Corpuscular Hemoglobin 30.5 pg (25-34); Mean Corpuscular Hgb Conc 33.7 g/dL (32-36); Mean Corpuscular Volume 90.5 fL (80-100); Mean Platelet Volume 10.6 fL (7.4-10.4); Monocytes # (auto) 1.08 K/uL (0.11-0.59); Monocytes % (auto) 9.7 %; Neutrophils # (auto) 9.38 K/uL (1.4-6.5); Neutrophils % (auto) 84.4 %; Platelet Count 147 K/uL (130-400); RDW Coefficient of Variation 13.6 % (11.5-14.5); RDW Standard Deviation 45.2 fL (36.4-46.3); Red Blood Count 4.52 M/uL (4.7-6.1); White Blood Count 11.11 K/uL (4.8-10.8)
[2020-04-07 07:39] LABS: Alanine Aminotransferase 44 U/L (12-78); Albumin Level 2.5 gm/dl (3.4-5.0); Aspartate Aminotransferase 41 U/L (15-37); BUN Creatinine Ratio 37.1 (10-20); Blood Urea Nitrogen 23 mg/dl (7-18); Calcium 8.9 mg/dl (8.5-10.1); Carbon Dioxide 26 mmol/L (21-32); Chloride 104 mmol/L (98-107); Creatinine Clr Calc Pharmacy 122.8 ml/min; Est GFR (African American) 114.1; Est GFR (Non-African American) 98.4; Glucose 122 mg/dl (70-99); Potassium 3.7 mmol/L (3.5-5.1); Sodium 136 mmol/L (136-145)
[2020-04-07 07:57] LABS: Albumin Globulin Ratio 0.6 (0.9-2); Alkaline Phosphatase 101 U/L (45-117); Bilirubin,Total 0.5 mg/dl (0.2-1); Total Protein 6.5 gm/dl (6.4-8.2); Troponin I < 0.015 ng/ml (0-0.045)
[2020-04-07] MEDS: MULTIVITAMIN TAB PO SCH (07:59)
--- NOTE | 2020-04-07 08:46 | Fluoroscopy Report ---
INTRAOPERATIVE RADIOGRAPH CLINICAL HISTORY: Intraoperative cholangiogram. Fluoroscopy time: 4 seconds. FINDINGS: A single spot fluoroscopic view of the right upper quadrant from an intraoperative cholangi ogram is correlated with abdominal CT performed the same day 04/06/2020. The gallbladder is surgicall y absent. There is smooth contrast opacification of the common bile duct. No intraluminal filling def ects are seen to suggest choledocholithiasis. There is free passage of contrast in the duodenum. No i ntrahepatic biliary ductal dilatation is seen. IMPRESSION: Intraoperative cholangiogram image as above. Electronically signed by: Rogelio Oliveros M.D. 04/07/2020 8:45 AM
[2020-04-07] MEDS ORDERED: METOPROLOL TARTRATE 25 MG TAB PO SCH (09:00)
--- NOTE | 2020-04-07 09:23 | XCELERA ---
[id number]
--- NOTE | 2020-04-07 10:24 | Surgery Progress Note ---
Date of Service April 07, 2020 Assessment & Plan (1) Acute cholecystitis: POD 1 lap bobbi diet as nicci cont IV abx cont drain Admission and Anticipated Discharge Date Admission Date: April 06, 2020 Subjective some soreness from incisions, no nausea Physical Exam Gastrointestinal (Abdomen): Inspection/Auscultation: + abdominal surgical drain present (20 cc ) Percussion/Palpation: abdomen soft Results & Data ([facility]) Vital Signs (Past 12 Hours) Vital Signs Temp Pulse Pulse Resp BP BP Pulse Ox 04/07/20 08:19 37.4 C 116 H 20 130/85 96 04/07/20 07:20 118 H 04/07/20 03:09 36.6 C 105 H 20 126/88 97 04/07/20 02:00 36.6 C 105 H 21 119/78 98 04/07/20 00:50 36.5 C 99 H 20 143/86 H 96 04/07/20 00:40 104 H 04/06/20 23:49 36.5 C 96 H 20 154/101 H 96 04/06/20 23:20 36.5 C 103 H 19 157/86 H 99 04/06/20 22:51 95 H 20 145/91 H 97 04/06/20 22:40 36.6 C 97 H 20 142/92 H 98 04/06/20 22:30 100 H 24 140/95 99 PG Care Time/CCT Total # of Minutes Spent Total Time Spent with Patient: Total time spent is greater than 50% in coordination of care (as documented) at patient's floor/unit and/or counseling patient: Coding Level of Care Code None Diagnoses Acute cholecystitis K81.0
--- NOTE | 2020-04-07 13:48 | Communication Note ---
Date of Service: April 07, 2020 No c/o chest pain or SOB;no c/o visual disturbances;no c/o weakness or paresthesias to extremities; no c/o n/v;adequate analgesia.Stable, no apparent anesthetic sequelae.
--- NOTE | 2020-04-07 15:48 | Electrocardiogram Report ---
Test Reason : Blood Pressure : / mmHG Vent. Rate : 119 BPM Atrial Rate : 115 BPM P-R Int : 000 ms QRS Dur : 142 ms QT Int : 354 ms P-R-T Axes : 000 -52 -16 degrees QTc Int : 497 ms Atrial fibrillation with rapid ventricular response Right bundle branch block Left anterior fascicular block Bifascicular block Possible Lateral infarct , age undetermined Abnormal ECG When compared with ECG of 15-MAR-2002 19:24, Atrial fibrillation has replaced Sinus rhythm Right bundle branch block has replaced Incomplete right bundle branch block Borderline criteria for Lateral infarct are now Present Confirmed by Km Brown ([id number]) on 04/07/2020 3:47:47 PM Referred By: ER Confirmed By:Km Brown
--- NOTE | 2020-04-07 15:50 | Electrocardiogram Report ---
Test Reason : Blood Pressure : / mmHG Vent. Rate : 101 BPM Atrial Rate : 138 BPM P-R Int : 000 ms QRS Dur : 146 ms QT Int : 384 ms P-R-T Axes : 000 -49 -12 degrees QTc Int : 497 ms Atrial fibrillation with rapid ventricular response with premature ventricular or aberrantly conducte d complexes Right bundle branch block Left anterior fascicular block Bifascicular block Possible Lateral infarct (cited on or before 06-APR-2020) Abnormal ECG When compared with ECG of 06-APR-2020 12:44, (unconfirmed) No significant change was found Confirmed by Km Brown ([id number]) on 04/07/2020 3:50:31 PM Referred By: REFERRED SELF Confirmed By:Km Brown
--- NOTE | 2020-04-07 15:57 | Electrocardiogram Report ---
Test Reason : Blood Pressure : / mmHG Vent. Rate : 089 BPM Atrial Rate : 416 BPM P-R Int : 000 ms QRS Dur : 150 ms QT Int : 388 ms P-R-T Axes : 000 -46 -16 degrees QTc Int : 472 ms Atrial fibrillation Right bundle branch block Left anterior fascicular block Bifascicular block Abnormal ECG When compared with ECG of 06-APR-2020 14:41, (unconfirmed) No significant change was found Confirmed by Km Brown ([id number]) on 04/07/2020 3:57:08 PM Referred By: REFERRED SELF Confirmed By:Km Brown
--- NOTE | 2020-04-07 19:46 | Hospitalist Progress Note ---
Date of Service April 07, 2020 Assessment & Plan (1) Acute cholecystitis: POD1 post jose alberto laguerre appreciate surgical input (2) Atrial fibrillation with RVR: minimally symptomatic rate control for now echo pending start anticoagulation in near future (3) Glaucoma: Continue his usual latanoprost and timolol (4) DVT prophylaxis: Chemical prophylaxis post-operatively; will need full anticoaguation in near future Admission and Anticipated Discharge Date Admission Date: April 06, 2020 Subjective pain - but meds help. abdominal and radiates to shoulders maybe feels heart palpitations or pounding some but not dominant no cp no sob Review of Systems Review of Systems: All systems reviewed & are unremarkable except as noted in HPI & below Physical Exam Physical Exam: gen aaox3 pleasant nad heent nc at mmm cardio irreg irreg tachy no clearly notable r/m/g abd soft no guarding/rebound. tenderness as expected for postop Results & Data Results & Data ([facility]) Vital Signs (Past 12 Hours) Vital Signs Temp Pulse Pulse Pulse Resp BP Pulse Ox 04/07/20 19:39 98.4 F 123 H 20 138/88 92 04/07/20 16:24 98.4 F 125 H 18 132/84 90 04/07/20 15:44 110 H 04/07/20 12:10 98.1 F 103 H 18 116/74 93 04/07/20 08:19 99.3 F 116 H 20 130/85 96 PG Care Time/CCT Total # of Minutes Spent Total Time Spent with Patient: Total time spent is greater than 50% in coordination of care (as documented) at patient's floor/unit and/or counseling patient: Coding Level of Care Code 02887 Subseq Hosp Care Lvl 3 Diagnoses Acute cholecystitis K81.0 Atrial fibrillation with RVR I48.91 Glaucoma H40.9 DVT prophylaxis Z29.9
[2020-04-07] MEDS: METOPROLOL TARTRATE 25 MG TAB PO SCH (20:09)
[2020-04-08] MEDS: PIPERACILLIN/TAZOBACTAM 3.375 GM in DEXTROSE 5% 100 ML IV SCH ×2 (00:12→08:38)
[2020-04-08] MEDS: ACETAMINOPHEN 1,000 MG/100 ML VIAL IV SCH ×2 (00:14→07:57)
[2020-04-08] MEDS: LACTATED RINGER'S 1,000 ML IV SCH ×2 (05:52→13:55)
[2020-04-08] MEDS: METOPROLOL TARTRATE 25 MG TAB PO SCH ×2 (08:01→20:39)
[2020-04-08] MEDS: MULTIVITAMIN TAB PO SCH (08:01)
[2020-04-08] MEDS: ENOXAPARIN INJ 40 MG/0.4 ML SYR SQ SCH (08:02)
[2020-04-08] MEDS: TIMOLOL MALEATE 0.25% OP SOLN 5 ML BTL OPB SCH ×2 (08:02→20:39)
[2020-04-08] MEDS ORDERED: METOPROLOL TARTRATE 25 MG TAB PO ONE (09:30)
--- NOTE | 2020-04-08 09:57 | Surgery Progress Note ---
Date of Service April 08, 2020 Assessment & Plan (1) Acute cholecystitis: Patient overall is doing well from his surgery which approximately 48 hours postop I reassured him that it may take another day or so before he moves his bowels which is not uncommon after having surgery regarding his diet he surgery can be advanced on a regular diet he wishes from my surgical point of view the patient can be discharged anytime we will leave the Gee drain in and removed in the office early next week and he can be started on anticoagulation for atrial fib if medicine so deems Patient not drive for 1 week do not lift anything heavier than 10 pounds for 1 week after discharge I would discharge him on p.o. antibiotics to cover E. coli and keep him on for about 7 to 10 days postoperatively Present on Admission?: Yes Admission and Anticipated Discharge Date Admission Date: April 06, 2020 Subjective Patient overall seems to be doing well his only complaint he has not been able to move his bowels yet is tolerating a diet fell just a week yesterday Physical Exam Physical Exam: Is alert coherent in no distress The abdomen is completely benign trocar sites healing well The Gee drainage is some serous slightly sanguinous nonbilious Results & Data ([facility]) Vital Signs (Past 12 Hours) Vital Signs Temp Pulse Pulse Resp BP Pulse Ox 04/08/20 07:48 115 H 04/08/20 07:46 37 C 117 H 18 151/94 H 91 04/08/20 03:24 36.7 C 124 H 18 140/79 92 04/07/20 23:33 36.8 C 120 H 18 124/82 92 04/07/20 22:20 109 H PG Care Time/CCT Total # of Minutes Spent Total Time Spent with Patient: Total time spent is greater than 50% in coordination of care (as documented) at patient's floor/unit and/or counseling patient: Coding Level of Care Code None Diagnoses Acute cholecystitis K81.0
[2020-04-08] MEDS ORDERED: COUGH DROP (SUGAR FREE) LOZ 24 LOZ/1 BOX BUCCAL PRN (10:24)
[2020-04-08] MEDS: MoRPHine SULFATE 4 MG/ML 1 ML CARP\\VIAL IV PRN (12:50)
[2020-04-08] MEDS: cefTRIAXone SODIUM 2,000 MG in DEXTROSE 5% 50 ML IV SCH (17:14)
--- NOTE | 2020-04-08 19:37 | Hospitalist Progress Note ---
Date of Service April 08, 2020 Assessment & Plan (1) Acute cholecystitis: POD2 post cholshruti mcnamaran appreciate surgical input (2) Atrial fibrillation with RVR: asymptomatic rate control for now (titrate metoprolol) echo reassuring start anticoagulation in near future (3) Glaucoma: Continue his usual latanoprost and timolol (4) DVT prophylaxis: Chemical prophylaxis post-operatively; will need full anticoaguation in near future Admission and Anticipated Discharge Date Admission Date: April 06, 2020 Subjective feeling about the same w abdominal pain - still fairly bad but better with pain meds no palpitations no chest pain present and updated in depth Review of Systems Review of Systems: All systems reviewed & are unremarkable except as noted in HPI & below Physical Exam Physical Exam: pleasant nad heent nc at mmm cardio tachy but better no r/m/g lungs cta but diminished bibasilar c/w atelectasis Results & Data Results & Data ([facility]) Vital Signs (Past 12 Hours) Vital Signs Temp Pulse Pulse Resp BP Pulse Ox 04/08/20 16:04 99.0 F 119 H 24 149/89 H 93 04/08/20 16:00 108 H 04/08/20 12:09 97.7 F 107 H 18 128/85 95 04/08/20 07:48 115 H 04/08/20 07:46 98.6 F 117 H 18 151/94 H 91 PG Care Time/CCT Total # of Minutes Spent Total Time Spent with Patient: Total time spent is greater than 50% in coordination of care (as documented) at patient's floor/unit and/or counseling patient: Coding Level of Care Code 29753 Subseq Hosp Care Lvl 3 Diagnoses Acute cholecystitis K81.0 Atrial fibrillation with RVR I48.91 Glaucoma H40.9 DVT prophylaxis Z29.9
[2020-04-08] MEDS: LATANOPROST 0.005% OP SOLN 2.5 ML BTL OPB SCH (20:39)
[2020-04-08] MEDS ORDERED: METOPROLOL TARTRATE 50 MG TAB PO SCH (21:00)
[2020-04-09] MEDS: oxyCODONE/ACETAMINOPHEN 5mg/325mg TAB PO PRN ×2 (05:02→16:54)
[2020-04-09 07:42] LABS: Hematocrit (blood only) 38.5 % (42-52); Mean Corpuscular Hemoglobin 30.7 pg (25-34); Mean Corpuscular Hgb Conc 33.8 g/dL (32-36); Mean Platelet Volume 10.1 fL (7.4-10.4); Platelet Count 221 K/uL (130-400); RDW Coefficient of Variation 13.8 % (11.5-14.5); RDW Standard Deviation 46.5 fL (36.4-46.3); Red Blood Count 4.23 M/uL (4.7-6.1); White Blood Count 12.75 K/uL (4.8-10.8)
[2020-04-09 08:05] LABS: BUN Creatinine Ratio 28.2 (10-20); Calcium 8.7 mg/dl (8.5-10.1); Est GFR (African American) 126.7; Est GFR (Non-African American) 109.3; Potassium 3.4 mmol/L (3.5-5.1)
[2020-04-09 08:13] LABS: Basophils # (auto) 0.01 K/uL (0-0.2); Basophils % (auto) 0.1 %; Eosinophils # (auto) 0.04 K/uL (0-0.5); Eosinophils % (auto) 0.3 %; Immature Granulocytes # (auto) 0.07 K/uL (0.00-0.02); Immature Granulocytes % (auto) 0.5 %; Lymphocytes # (auto) 0.93 K/uL (1.2-3.4); Lymphocytes % (auto) 7.3 %; Monocytes # (auto) 1.13 K/uL (0.11-0.59); Monocytes % (auto) 8.9 %; Neutrophils # (auto) 10.57 K/uL (1.4-6.5); Neutrophils % (auto) 82.9 %
--- NOTE | 2020-04-09 08:13 | Surgery Progress Note ---
Date of Service April 09, 2020 Assessment & Plan (1) Acute cholecystitis: POD 3 lap bobbi seen with Dr. Chandra can be discharged with drain and on po abx depending on antiocaogulation, drain can be removed in clinic on Sunday Admission and Anticipated Discharge Date Admission Date: April 06, 2020 Subjective rough day yesterday but slept well Physical Exam Gastrointestinal (Abdomen): Inspection/Auscultation: + abdominal surgical drain present (100 cc overnight) Percussion/Palpation: abdomen soft Results & Data ([facility]) Vital Signs (Past 12 Hours) Vital Signs Temp Pulse Pulse Resp BP Pulse Ox 04/09/20 07:29 37.1 C 94 H 18 156/84 H 94 04/09/20 03:50 100 H 04/09/20 02:54 36.8 C 100 H 20 163/90 H 94 04/08/20 22:00 37.0 C 111 H 16 141/98 H 92 PG Care Time/CCT Total # of Minutes Spent Total Time Spent with Patient: Total time spent is greater than 50% in coordination of care (as documented) at patient's floor/unit and/or counseling patient: Coding Level of Care Code None Diagnoses Acute cholecystitis K81.0
[2020-04-09] MEDS: METOPROLOL TARTRATE 25 MG TAB PO SCH ×2 (09:15→20:36)
[2020-04-09] MEDS: MULTIVITAMIN TAB PO SCH (09:15)
[2020-04-09] MEDS: ENOXAPARIN INJ 40 MG/0.4 ML SYR SQ SCH (09:16)
[2020-04-09] MEDS: TIMOLOL MALEATE 0.25% OP SOLN 5 ML BTL OPB SCH ×2 (09:16→20:29)
[2020-04-09] MEDS: ONDANSETRON INJ 2 MG/ML 2 ML VIAL IV PRN (16:54)
[2020-04-09] MEDS: cefTRIAXone SODIUM 2,000 MG in DEXTROSE 5% 50 ML IV SCH (17:02)
--- NOTE | 2020-04-09 18:35 | Hospitalist Progress Note ---
Date of Service April 09, 2020 Assessment & Plan (1) Acute cholecystitis: gangernous perforated cholecystitis w possible sepsis and (+) bacteremia present on admission POD3 post choley zosyn --> ceftriaxone --> continue at least into tomorrow, if he continues to improve then can probably switch to PO abx to finish out course of treatment for bacteremia appreciate surgical input (2) Atrial fibrillation with RVR: asymptomatic rate control for now (doing well now on current dose of metoprolol) echo reassuring start anticoagulation in near future (3) Glaucoma: Continue his usual latanoprost and timolol (4) DVT prophylaxis: Chemical prophylaxis post-operatively; will need full anticoaguation in near future Admission and Anticipated Discharge Date Admission Date: April 06, 2020 Subjective pain doing better in belly has some back pain - mostly R lower. notes having had injection before. also some pain in mid back. hasnt' gotten up a lot yet no feelings of racing heart/pounding/etc Review of Systems Review of Systems: All systems reviewed & are unremarkable except as noted in HPI & below Physical Exam Physical Exam: gen aaox3 pleasant nad heent nc at mmm breathing unlabored no accessory muscles skin no rashes no pallor or icterus. R hemipelvis probably sl anterior w sl restricted ROM on internal rotation at R hip and some tendernss R posterior buttock i nregion of piriformis. muscle energy done x3 pt tolerated well. Results & Data Results & Data ([facility]) Vital Signs (Past 12 Hours) Vital Signs Temp Pulse Resp BP Pulse Ox 04/09/20 14:33 97.7 F 91 H 18 146/85 H 95 04/09/20 12:08 98.1 F 82 16 138/90 95 04/09/20 07:29 98.8 F 94 H 18 156/84 H 94 PG Care Time/CCT Total # of Minutes Spent Total Time Spent with Patient: Total time spent is greater than 50% in coordination of care (as documented) at patient's floor/unit and/or counseling patient: Coding Level of Care Code 47203 Subseq Hosp Care Lvl 3 Diagnoses Acute cholecystitis K81.0 Atrial fibrillation with RVR I48.91 Glaucoma H40.9 DVT prophylaxis Z29.9
[2020-04-09] MEDS: LATANOPROST 0.005% OP SOLN 2.5 ML BTL OPB SCH (20:29)
[2020-04-10] MEDS: oxyCODONE/ACETAMINOPHEN 5mg/325mg TAB PO PRN ×3 (02:31→12:31)
[2020-04-10] MEDS: TIMOLOL MALEATE 0.25% OP SOLN 5 ML BTL OPB SCH (08:22)
[2020-04-10] MEDS: METOPROLOL TARTRATE 25 MG TAB PO SCH (08:22)
[2020-04-10] MEDS: ENOXAPARIN INJ 40 MG/0.4 ML SYR SQ SCH (08:22)
[2020-04-10] MEDS: MULTIVITAMIN TAB PO SCH (08:23)
[2020-04-10 12:21] LABS: Ehrlichia chaff IgG Ab <1:64 (<1:64); Ehrlichia chaff IgM Ab <1:20 (<1:20)
[2020-04-10] MEDS: cefTRIAXone SODIUM 2,000 MG in DEXTROSE 5% 50 ML IV SCH (12:25)
--- NOTE | 2020-04-10 12:36 | Surgery Progress Note ---
Date of Service pt is doing fine, no nausea, no vomiting, no fever, RUSTY 50ml April 10, 2020 Assessment & Plan (1) Acute cholecystitis: S/P lap bobbi, RUSTY 50ml. pt doing fine, pt can be discharged today, with RUSTY, F/U DR. De La Garza next Sunday for remove RUSTY, sign off today, please call with questions. thanks, Present on Admission?: Yes Admission and Anticipated Discharge Date Admission Date: April 06, 2020 Supervising Physician Co-Signing Physician Notes As per Yony bustillos the patient who is a hunting regularly and had denied any chest pain after eating sweet and sour chicken developed abdominal pain was approximately Sunday progressively getting worse and not eating anything since then except to bites last evening was diagnosed acute cholecystitis possible perforation Patient also had new onset of atrial fib The patient other than that was relatively healthy years ago he had complete cardiac evaluation at the [facility] was about 10 years ago for what he felt some syncopal attacks The patient is resting comfortably although complaining some abdominal pain on exam the patient exquisitely tender and rebound right upper quadrant CT scan and other lab was noted at bedside I recommend the patient proceed with laparoscopic cholecystectomy intraoperative cholangiogram possible open The new onset of atrial fib most likely is related to the acute episode of his gallbladder The case was discussed with the internal medicine and they agreed to proceed with surgery As stated above risk and palpation were explained to the patient Permit was signed surgery was called at approximately 7:05 PM Subjective pain doing better in belly has some back pain - mostly R lower. notes having had injection before. also some pain in mid back. hasnt' gotten up a lot yet no feelings of racing heart/pounding/etc Physical Exam Constitutional: WD/WN, vitals as above well developed and well nourished Eyes: PERRL, conjunctivae normal, anicteric sclerae ENMT: external ear and nose normal, oropharynx normal Neck: trachea midline, no thyromegaly Respiratory: normal respiratory effort, lungs clear to auscultation normal respiratory effort Cardiovascular: Rate/Rhythm: + irregularly irregular Gastrointestinal (Abdomen): normal bowel sounds, soft, nontender, no hepatosplenomegaly all incisions intact, no redness, Musculoskeletal: no cyanosis or clubbing, extremities motor strength 5/5 Skin: no rashes, warm and dry Neurologic: patellar DTR's 2+ bilat, sensation intact Psychiatric: Orientation: alert and oriented x 3 Results & Data ([facility]) Vital Signs (Past 12 Hours) Vital Signs Temp Pulse Pulse Pulse Resp BP BP 04/10/20 11:14 36.8 C 103 H 93 H 18 138/82 144/88 H 04/10/20 07:50 36.8 C 93 H 18 144/88 H 04/10/20 03:00 37.1 C 87 16 133/80 04/10/20 02:10 78 Pulse Ox 04/10/20 11:14 90 04/10/20 07:50 90 04/10/20 03:00 95 04/10/20 02:10
--- NOTE | 2020-04-10 19:15 | Discharge Summary ---
Date of Service April 10, 2020 Admission HPI Per Admitting Provider Josh Martin is a generally healthy 74 year old male who presents to the ER with 4 days of abdominal pain. Never had any gall bladder issues in the past. Abdominal pain in right upper quadrant, worse after eating (started after eating sweet and sour chicken. No change with exertion or position. Very tender to touch. Current severity 6/10 but on palpation 03/06. He reports having a fever of 100.1 degrees Fahrenheit at home. Associated reduced appetite and nausea. No vomiting, diarrhea, constipation, melena. He does report having a tick bite which he is attached when he was hunting on Sunday. However the tick was found on Sunday (2 days previously) and was removed but not engorged at this time. Tick bite found on right posterior thigh. He denies any rashes. Prior to this the patient is physically fit. Hunts regularly without any chest pain or shortness of breath. No prior history of cardiovascular disease. Able to walk a mile without any issues. No prior diagnosis of atrial fibrillation. In the ER due to the history of tick bite he received IV doxycycline and serology testing sent for anaplasmosis and ehrlichiosis. I am unclear on the reasons for ceftriaxone however 2 g IV was also prescribed. Potassium chloride 40 M EQ p.o. given for hypokalemia. Subsequent imaging concerning for gangrenous acute cholecystitis with possible perforation. He was noted to be in new onset atrial fibrillation on telemetry and EKG. Surgery has already been consulted regarding acute cholecystitis. He was referred to medicine for admission. Principal Diagnosis perforated cholecystitis w sepsis/bacteremia Discharge Exam gen aaox3 pleasant nad heent nc at mmm breathing unlabored no accessory muscles good effort skin no rashes no pallor or icterus abdominal drain w serosanguanous drainage Discharge Data Allergies Allergy/AdvReac Type Severity Reaction Status Date / Time aspirin Allergy Unknown UNSURE Verified 04/07/20 09:45 Beef Containing Products Allergy Unknown Unknown Verified 04/07/20 10:00 citric acid Allergy Unknown UNKNOWN Verified 04/07/20 10:05 ibuprofen Allergy Unknown UNSURE Unverified 04/06/20 14:23 lemon Allergy Unknown Unknown Verified 04/07/20 10:00 Consultations 04/06/20 15:51 Consult General Surgery Stat 04/06/20 16:06 ED Decision to Admit Stat Procedures Performed Operation Date: 04/06/20 19:30 Actual Procedures p Laparoscopic Cholecystectomy with Cholangiogram(Not Applicable) - Rohit Chandra MD Ordered Studies 04/06/20 13:23 US abdomen limited Stat 04/06/20 13:58 CT angio chest PE protocol Stat 04/06/20 14:02 CT abd pelvis IV con only Stat 04/06/20 19:13 FL fluoroscopy <1hr Routine 04/06/20 19:14 FL cholangiogram OR Routine Hospital Course (1) Acute cholecystitis: gangernous perforated cholecystitis w possible sepsis and (+) bacteremia present on admission POD4 post choley zosyn --> ceftriaxone -->finish out 14 days of abx w cefdinir appreciate surgical input - home w drains (2) Atrial fibrillation with RVR: asymptomatic rate control for now (doing well now on current dose of metoprolol) echo reassuring start anticoagulation in near future (sent w Rx for xarelto - but CHADS-Vasc is about 2.2% on the year - so will hold starting until drains pulled so as to minimize bleeding risk) (3) Glaucoma: Continue his usual latanoprost and timolol (4) DVT prophylaxis: Chemical prophylaxis post-operatively; will need full anticoaguation in near future (5) Thoracic aortic aneurysm: beta amy probably would benefit from a statin (but no immediate need, and on abx, new beta amy, new anticoagulation, so would hold on this for now - but probably start in ~1-2 months if no contraindications) (6) Esophageal thickening: likely from reflux but rec'd EGD in near future for completeness Total Time Total Time Spent Total Time Spent (In Minutes): >30 Discharge Plan Discharge Items Patient Disposition: Home - Self-Care Reason For Visit: Acute Cholecystitis Discharge Diagnosis: cholecystitis, see below otherwise Activity: Resume your previous activity Lifting: No more than 10 pounds Bathing Comment: ok to shower with the drain Driving/Machine Use: no driving for 1 week Non-emergency contact: Primary Care Provider and Surgeon Call non-emergency contact if: you have any medication questions and your symptoms worsen Follow-up/Referrals: Rohit Chandra MD [Surgeon] - (Please call the office to have the drain removed on Sunday) Carlee Stafford PA-C [Primary Care Provider] - Diet: Regular Addtl Attending Provider Instructions: cholecystitis (infected gallbladder) -fortunately this is now improved. you'll have the drains in until the surgeons take them out in the office -as frequently happens - the infection from the gallbladder spilled over to your bloodstream - fortunately it is bacteria that are quite easy to treat. -we'll have treated you with a little more than 4 days IV, typically we treat for an infection like this with a total of 14 days of antibiotics - so we'll finish out treatment with another 10 days of oral antibiotics -as we discussed, there's a very close cousin medication to what you've been on IV (ceftriaxone) - which is cefdinir (omnicef) - we'll have you take it twice a day starting tomorrow morning (04/11) for 10 more days -the type of bacteria (e coli) that spilled out from the perforated gallbladder fortunately are not bacteria that have a propensity to stick on to other parts of your body, so as we treat this, the infection should just continue to get better and then go away -it would be very unlikely to happen, but if you were to feel worse abdominal pain, or if you were to have a fever - we'd want you seen right away atrial fibrillation -as frequently happens, when you were here we found you incidentally to be in a heart rhythm called atrial fibrillation (afib) -afib is when the top part of the heart's wiring "goes bad" -- typical conduction is that electricity is generated in the top part of the heart, then that electricity makes the top part (atria) contract. that electricity is then funneled to the bottom part of the heart (ventricles) and you get a nice, coordinated, heart rate. with afib, the top part of the heart quivers instead of beating, creating the problems we need to help manage ---rate: because the top part of the heart quivers instead of avery, it sends a rapid fire series of signals to the bottom part of the heart -- this can make the bottom part of the heart race - so for almost everyone with afib, we have to use medication to keep the heart rate under control. for you we're using metoprolol - and it's working quite nicely. we've got you on 150mg total on the day - and so we'll send a prescription for that in the long-acting form so you can just take all 150mg at the same time to make life a little easier (it doesn't actually come as 150mg pills though - so we'll have to use a 100mg and a 50mg). as we discussed with afib - frequently we'll see it in the hospital when someone has "a good reason" for their heart to be fast (in your case the gallbladder issues) - and so while the physical stress/pain/etc doesn't actually cause the afib, it can make it race faster --- what this means is that over time it's pretty likely that your heart rate will be even easier to control - and therefore reasonably likely that the dose of metoprolol you need right now will probably be able to be reduced over time. as they follow you in the office they'll be able to help guide this; but, if you were to feel unexplainably tired, weak, or lightheaded, that can often be a hint that your metoprolol dose is a little too high ---clot prevention: because the top part of the heart quivers, it allows a stagnant pond to form - and in that stagnant pond clots can form - and then because the "straightest shot" from the heart out into blood vessels is the brain - it can allow a situation where you're at risk for a pretty bad stroke. to eliminate this risk, we put people with afib on a blood thinner. for you (with no major medical problems otherwise and no kidney problems) a medication like xarelto is ideal (eliquis would be just as good - but it's twice a day whereas the xarelto is only once) -- we'll send you with the prescription for it - but there's not an immediate urgency to start it since you calculate out to be about a 2.5% risk of stroke each year - it's more over time that this risk would add up. to make life easy for you, it would probably be better to start the blood thinner (xarelto) after surgery has pulled the drains/etc -as we discussed, being on a blood thinner does make it easier to have bleeding. most of this is "nuisance" bleeding (nosebleeds, bruising, little cuts taking longer to stop, etc) - if it is bleeding you can put pressure on (like a nosebleed or a cut) - then put pressure on it for 10 minutes. most bleeding will resolve with this. if it's bleeding that doesn't respond to 10 minutes of pressure, then you should get checked out (the nosebleed might need packed or cauterized, the cut might need a stitch, etc) - and also then it sets things up for safety because if it is bleeding that you can't put pressure on (pooping blood, vomiting blood) you know that you should go straight to the hospital. as we discussed as well, while it still happens, we see far less serious bleeds on the blood thinners like xarelto or eliquis than we do on ones like coumadin incidentals -when someone in their 70's gets a CT scan, we'll often see incidental findings that aren't urgent (and sometimes aren't actually even relevant, once we have the benefit of hindsight) but do warrant follow up: -thoracic aortic aneurysm --- first of all, like we discussed, in medical terminology an aneurysm is a bulge in the blood vessel (not the "word on the street" definition of a ruptured blood vessel) -- the main reason we worry about aneurysms is to prevent them from reaching that "rupture" state - but most don't. in the greater scheme of things yours is pretty small - about 4.2 centimeters - and by most criteria right now should be followed probably about once a year. any time i see something new, i like to follow it a little more closely the first time (just to "make two points to connect a line") - so talk to your PCP but I would consider a first repeat look (probably by ultrasound unless they can't see it well - then a repeat CT) in about 3-6 months -the main things we do to prevent aneurysms from getting bigger are blood pressure control (meds like the metoprolol we're using for your afib do well for this purpose too) and there's some decent research that shows that people also have less progression with aneurysms if they're on a statin medicine (like lipitor or crestor) -- but since there's not an urgency to that, and we're already having to send you out on other new medicines - i would say we wait a few weeks to a month and then your PCP can move things in that direction once you've gotten adapted to your current new regimen -esophagus thickening - they also saw a little bit of thickening of your esophagus - that really looked most like esophagitis (inflammation) - this would fit with the acute situation you had going on with the cholecystitis - as cholecystitis often has a lot of related upper GI distress to go with it. in "indulging paranoia" we'll usually have people get an upper endoscopy (EGD) just to make sure there's nothing more worrisome going on. i really highly doubt this is anything of a cancer or anything worrisome, but having a cotton opener take a look lays the whole thing to rest. 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 Provider Instructions: Empty the drain 2-3 times daily as needed Pending Studies at Discharge: No Stand-Alone Forms: My [facility], Smoking Cessation Medications and DC Order Prescriptions: New cefdinir 300 mg capsule 300 mg PO BID 10 Days Qty: 20 RF: 0 Xarelto 20 mg tablet 20 mg PO DAILY Qty: 30 RF: 0 metoprolol succinate [Toprol XL] 100 mg tablet extended release 24 hr 100 mg PO DAILY Qty: 30 RF: 0 metoprolol succinate [Toprol XL] 50 mg tablet extended release 24 hr 50 mg PO DAILY Qty: 30 RF: 0 Continued multivitamin Tablet 1 tab PO QAM RF: 0 latanoprost [Xalatan] 0.005 % Drops 1 drp OPB HS RF: 0 tramadol 50 mg Tablet 100 mg PO BID RF: 0 baclofen 10 mg Tablet 10 mg PO BID PRN (Reason: Back Pain) RF: 0 timolol maleate 0.5 % Drops 1 drp OPB BID RF: 0 Discharge Orders: Discharge Order (Routine); Ordered 04/10/20 Ordered By: Ye Miranda Admission Data Admit Date/Time: 04/06/20 23:30 Attending Provider: Ye Miranda Admit Provider: Cristian Herrera Primary Care Provider: Carlee Stafford Other Providers: Rohit Chandra ; Cristian Herrera Other Interventions: Discharge Summary Assessment (RN) Last Done: 04/10/20 11:14 Coding Level of Care Code D/C Day Management >30 mins Diagnoses Acute cholecystitis K81.0 Atrial fibrillation with RVR I48.91 Glaucoma H40.9 DVT prophylaxis Z29.9 Thoracic aortic aneurysm I71.2 Esophageal thickening K22.8
== END 2020-04-10 13:38 | disposition home or self-care (01) | DRG 854 ==
LOC: ED 12:36 → OR 19:23 → SUATTDRO 23:30 → 2W 23:30